=== PATIENT | female | born 1950 | race Caucasian/White ===

== ENCOUNTER 2024-02-06 22:58 | Inpatient (IN) | payer MEDICARE, BC, SELFPAY ==
[2024-02-06] VITALS (8 sets, daily range): BP systolic 96–149; BP diastolic 63–90; BMI 26.0; BMI 26.1
[2024-02-06 16:53] LABS: % Basophils 0.4 % (0-2); % Eosinophils 0.8 % (0-6); % Immature Granulocytes 0.8 % (0-0.5); % Monocytes 7.1 % (1.7-9.3); % Neutrophils 76.9 % (42.2-75.2); Absolute Basophils 0.1 10^3/uL (0-0.2); Absolute Eosinophils 0.1 10^3/uL (0-0.7); Absolute Immature Granulocytes 0.1 10^3/uL (0-0.05); Absolute Lymphocytes 1.9 10^3/uL (1.2-3.4); Absolute Neutrophils 10.5 10^3/uL (1.4-6.5); Hematocrit 35.4 % (37.0-47.0); Hemoglobin 12.1 g/dL (12.0-16.0); Mean Corp Hgb Conc. 34.2 g/dL (33.0-37.0); Mean Corpuscular Hgb 28.7 pg (27.0-31.0); Mean Corpuscular Volume 83.9 fL (81.0-99.0); Mean Platelet Volume 10.8 fL (7.4-10.4); Nucleated Red Blood Cells % 0 %; Platelet Count 301 10^3/uL (130-400); Red Blood Cell Count 4.22 10^6/uL (4.20-5.40); Red Cell Dist. Width 12.7 % (11.5-14.5); White Blood Cell Count 13.6 10^3/uL (4.8-10.8)
[2024-02-06 17:04] LABS: ALT (SGPT) 20 U/L (0-35); AST (SGOT) 25 U/L (14-36); Albumin 3.7 g/dl (3.5-5.0); Alkaline Phosphatase 68 U/L (38-126); Blood Urea Nitrogen 17 mg/dl (7-17); Calcium 9.5 mg/dl (8.4-10.2); Carbon Dioxide 29 mmol/L (22-30); Chloride 104 mmol/L (98-107); Glucose 109 mg/dl (70-99); Potassium 2.9 mmol/L (3.5-5.1); Sodium 140 mmol/L (135-145); Total Bilirubin 0.5 mg/dl (0.2-1.3); Total Protein 6.4 g/dl (6.3-8.2); eGFR > 60.00
--- NOTE | 2024-02-06 17:33 | ED.GENMED ---
History of Present Illness
General
Chief Complaint: Weakness
Source: patient and spouse
Exam Limitations: altered mental status
Time Seen by Provider: 02/06/24 17:12
Nursing documentation reviewed up to this point in time: agreed with
Travel History
Have you had any contact with someone who has COVID-19?: No
Do you have any symptoms of coronavirus? Fever > 100 degrees, chills, cough, shortness of breath, sore throat, loss of taste or smell, muscle aches, or headache?: No
History of Present Illness
History of Present Illness:
73 yo female w h/o HTN. breast CA 11/09 with lumpectomy and radiation completed 02/2023, smoker, here with at bedside. She states 'my speech...I miss my words.' states since 11:30 last p.m. she has been more forgetful, having trouble
getting correct words out, legs are weak, couldn't even walk up the stairs, these symptoms are much worse today. She is drifting off to sleep frequently, 'quite a bit more' today.
Appetite poor past week from upper abdominal pain that has improved over past 2 days, but still there. Saw PCP yesterday for the abd pain and had none of today's symptoms, walked across parking lot fine. Had out pt labs and US ordered but not done.
Pt denies headache, n/v, denies CP, trouble breathing.
Past History
Past History
ED Past Medical History: Cancer (breast) and HTN
ED Past Surgical History: Appendectomy, Gynecological (lumpectomy ) and Orthopedic
Social History
Tobacco: Smoker
Alcohol: None
Personal:
Living: with family
Review of Systems
Review of Systems
Allergies reviewed?: Yes
All Other Systems: ROS reviewed and negative except as documented in HPI and ROS
Constitutional: Reports fatigue; Denies fever
Respiratory: Denies trouble breathing
Cardiac: Denies chest pain
ABD/GI: Reports abdominal pain and anorexia; Denies nausea, vomiting, diarrhea, constipated, bloody stools or black stools
: Reports frequency (chronic); Denies dysuria, flank pain, difficulty voiding or urgency
Musculoskeletal: Reports no symptoms
Skin: Reports no symptoms
Neurological: Reports weakness (legs are so weak she cannot stand since last night ); Denies dizzy or headache
Phy Exam
Physical Exam
Physical Exam:
GENERAL: No acute distress. A&Ox3.
CONSTITUTIONAL: Afebrile. , EOMs intact.
EYES: PERRL, conjunctivae normal
Neck: Supple
ENMT: dry mucus membranes, Pharynx nl
RESPIRATORY: Regular respirations, nonlabored, lungs clear.
CARDIOVASCULAR: Regular rate and rhythm, no murmurs, no rubs.
GI: Soft, nontender, normal BS
MUSCULOSKELETAL: No edema. Moves with ease. Well perfused.
SKIN: Warm, dry, pink
PSYCH: Normal mood and affect. Well kept, interactive and appropriate
NEUROLOGIC: Awake, alert and oriented. Speech clear, mild expressive aphasia, Strength 4/4 throughout. Trouble with right finger to nose after first try. Not uncoordinated, just doesn't seem to understand the command.
NIH Stroke Score
Level of Consciousness: 0 - Alert
LOC questions: 1-Answers one correctly (states it is January)
LOC Commands: 0-Performs both correctly
Best Gaze: 0-Normal
Visual Holman: 0=Normal, no visual loss
Facial palsy: 0=Normal, symmetrical
Motor - Right Arm: 0=No drift 10 seconds
Motor - Left Arm: 0=No drift 10 seconds
Motor - Right Le-No drift 5 seconds
Motor - Left Le-No drift 5 seconds
Limb Ataxia: 1-Present in one limb (finger to nose right hand unable to repeat after first try)
Sensation: 0-Normal
Best Language: 1-Mild aphasia
Dysarthria: 0-Normal
Extinction and Inattention: 0-No abnormality
Total Score:: 3
Course
Orders/Labs/Results
Orders:
Orders
02/06/24 16:40
CMP [Comprehensive Metabolic Panel] Urgent
Complete Blood Count/With Diff Urgent
02/06/24 17:12
0.9% Sodium Chloride 1000 ml [Nss] 1,000 ml IV BOLUS
02/06/24 17:14
Electrocardiogram (*1) Urgent
Reason for Study: Chest Pain
EKG- Treatment ONCE
02/06/24 17:20
Urinalysis Reflex To Culture Urgent
Date Specimen was Collected: 02/06/24
Time Specimen was Collected: 17:17
Urine Microscopic Reflex Cult Urgent
02/06/24 17:31
Potassium Chloride [KCl] 20 meq 0.9% Sodium Chloride 150 ml [Nss] 150 ml IV NOW
02/06/24 17:32
CT Head W/o Iv Contrast Urgent
Comment:
Reason For Exam: change in mental state
02/06/24 18:05
NEUROLOGY CONSULT Urgent
Consulting Provider: Rosibel Montelongo
Was physician already notified: Yes
Reason for consult: Stroke like symptoms started 19 hours ago
02/06/24 18:46
Consult Neurology [NEUROLOGY CONSULT] Routine
Consulting Provider: Rosibel Montelongo
Was physician already notified: Yes
Reason for consult: apshasia word replacement
Aspirin Low Dose EC [Aspir Low (Enteric Coated)] 81 mg PO NOW STA
Atorvastatin [Lipitor] 40 mg PO NOW STA
02/06/24 18:49
Admit/Transfer Patient As Directed
Co-Sign Provider:
Level of Care: Inpatient admission
Assign to:: Telemetry
Physician / Group: darcie lucio
Diagnosis: aphasia concern for cva/tia, hypokalemia
Reason for Telemetry: CVA/TIA
Date to Stop Telemetry: 02/09/24
Time to Stop Telemetry: 11:00
Reason for Hospitalization: aphasia concern for cva/tia, hypokalemia
Expected length of stay greater than two midnights?: Yes
ELOS- Estimated Length of Stay in days: 3
I certify the patient meets the requirements for IP care: Yes
Code Status As Directed
Resuscitation Status: Full Code
02/06/24 19:03
Potassium Chloride [KCl] 40 meq PO NOW STA
02/06/24 19:20
COVID-19 Antigen Urgent
Source: Nasal Swab
Influenza A+B Rapid Molecular Urgent
BAKARI Source: Nasal Swab
Specimen Description:
02/06/24 22:59
Acetaminophen [Tylenol/Feverall] 650 mg RECTAL Q4HPRN PRN
Acetaminophen [Tylenol] 650 mg PO Q4HPRN PRN
Cyclobenzaprine HCl [Flexeril] 10 mg PO BIDPRN PRN
Docusate Sodium [Colace] 100 mg PO DAILYPRN PRN
hydrocodone-ibuprofen 1 tablet PO BIDPRN PRN
02/06/24 22:59
Case Management Consult ONCE
Case Management Consult: Discharge Planning
Comment: stroke/tia
DIETARY CONSULT Routine
Reason for Consult: stroke/TIA
Continuity Clerk Urgent
Glycohemoglobin (HgbA1c) Routine
Activity As Directed
Activity Level: As Tolerated
NIH Stroke Scale As Directed
Directions: Per protocol
Comment: every shift and with any change in condition or mental status
Neurological Checks As Directed
Frequency: q4h
Additional Instructions:: q4h x 24h upon admission to the floor, then qshift & with any change in condition
and mental status
Patient Education As Directed
Type: Stroke education packet
Comment: provide to patient and family
Pneumatic Compression Sleeves As Directed
Type: Knee high
Vital Signs As Directed
Frequency: Per unit guidelines
Ot Eval And Treat Routine
Pt Eval And Treat Routine
Activity Level: As Tolerated
DX Deep Vein Thrombosis Video Routine
02/06/24 23:00
Amitriptyline [Elavil] 150 mg PO HS
02/07/24 01:30
Pregabalin [Lyrica] 150 mg PO BID
02/07/24 06:21
Basic Metabolic Panel IN AM
Cardiovascular Evaluation IN AM
Complete Blood Count/With Diff IN AM
02/07/24 08:00
Aspirin Low Dose EC [Aspir Low (Enteric Coated)] 81 mg PO DAILY
Bupropion(24Hr)Extended Releas [WELLBUTRIN XL (24 hour extended release)] 300 mg PO DAILY
Cholecalciferol (Vitamin D3) [VITAMIN D3 (cholecalciferol)] 25 mcg PO DAILY
Losartan [Cozaar] 50 mg PO DAILY
Pantoprazole [Protonix] 40 mg PO DAILY
02/07/24 18:00
Atorvastatin [Lipitor] 40 mg PO QPM
02/09/24 11:00
DC Protocol for Telemetry ONCE
Abnormal Lab Results
02/06/24 02/06/24
16:40 17:20
WBC 13.6 H 10^3/uL
(4.8-10.8)
Hct 35.4 L %
(37.0-47.0)
MPV 10.8 H fL
(7.4-10.4)
Abs Immat Gran (auto) 0.1 H 10^3/uL
(0-0.05)
Absolute Neuts (auto) 10.5 H 10^3/uL
(1.4-6.5)
Absolute Monos (auto) 1.0 H 10^3/uL
(0.1-0.6)
Immature Gran % 0.8 H %
(0-0.5)
Neutrophils % 76.9 H %
(42.2-75.2)
Lymphocytes % 14.0 L %
(20.5-51.1)
Potassium 2.9 L mmol/L
(3.5-5.1)
Glucose 109 H mg/dl
(70-99)
Leukocyte Esterase Rfl Trace A
(Negative)
Urine Bacteria (Reflex) Few A
(Negative)
02/06/24 16:40
02/06/24 16:40
Vital Signs
Initial and Last Documented VS:
Initial Vital Signs
Temp Pulse Resp BP Pulse Ox
98.1 F 76 18 116/72 92
02/06/24 16:27 02/06/24 16:27 02/06/24 16:27 02/06/24 16:27 02/06/24 16:27
Last Documented Vital Signs
Temp Pulse Resp BP Pulse Ox
98.2 F 75 20 144/80 95
02/08/24 22:34 02/08/24 22:34 02/08/24 22:34 02/08/24 22:34 02/08/24 22:34
MDM/Problems Addressed
Differential Diagnosis Includes:
CVA, TIA, metastatic disease, dehydration, UTI
MDM/Problems Addressed:
73 yo female w h/o HTN. breast CA with lumpectomy and radiation 2022, smoker, here with at bedside. She states 'my speech...I miss my words.' states since 11:30 last p.m. she has been more forgetful, having trouble getting correct
words out, legs are weak, couldn't even walk up the stairs, these symptoms are much worse today. She is drifting off to sleep frequently, 'quite a bit more' today.
Appetite poor past week from upper abdominal pain that has improved over past 2 days, but still there. Saw PCP yesterday for the abd pain and had none of today's symptoms, walked across parking lot fine. Had out pt labs and US ordered but not done.
Pt denies headache, n/v, denies CP, trouble breathing.
02/06/2024 1754 PM
CBC: WBC 13.6
CMP: K+ 2.9, no other abnormality
U/A pending
Head CT: pending
Hospitalist and Neurology notified of admission
Chronic conditions affecting care: HTN and Cancer (breast)
*Critical Care Note
Total Time (30-74mins, 75-104mins- exclusive of procedures): Not Applicable
Patient Management
Social determinants of health affecting care: Strong social support
ED Attending Note
-
Portions of this chart may have been created with voice recognition software.� Occasional wrong word or��sound alike� substitutions may have occurred due to the inherent limitations of voice recognition software.
Discharge Plan
Departure
Patient Disposition: Admit
Date of Disposition: 02/06/24
Time of Disposition: 18:05
Presentation/result/management discussed w/ accepting MD/DO: Hospitalist
Condition: Fair
Discharge Problem:
Stroke-like symptoms
Interventions
Interventions:
*Risk Screen - Suicide Last Done: 02/06/24 16:27
*General Assessment Last Done: 02/06/24 16:27
*Neglect/Abuse Screening Last Done: 02/06/24 16:27
ED- Fall Risk Assessment Last Done: 02/06/24 17:06
*ED COVID-19 Vaccine History Last Done: 02/06/24 16:27
*Nursing Disposition Last Done: 02/06/24 22:58
ED- Cardiac Assessment Last Done: 02/06/24 17:06
ED- Neurological Assessment Last Done: 02/06/24 17:06
ED- Pulmonary Assessment Last Done: 02/06/24 17:06
Discharge Date and Time
Discharge Date/Time: 02/06/24 22:59
[2024-02-06] MEDS: KCL 160 MEQ IV (18:02)
[2024-02-06] MEDS: NSS 1000 IV (18:02)
--- NOTE | 2024-02-06 18:19 | W.PN.UPDATE ---
Update Note
Progress Note Update
I saw and examined the patient.
The DRAFTER AUTOMOTIVE DESIGN LAYOUT or PA's note was reviewed and I agree with the note.
Comment:
Patient 73 years old female history of breast cancer, hypertension, depression, presented to the hospital with aphasia. Patient was seen well last yesterday but since 11:30 PM last evening she has been having lower extremity generalized weakness
associated with expressive aphasia and it has continued to get worse today throughout the day. She also had periods of confusion on off and probable aphasia for over 1 week intermittent in nature. She had a CT scan of the head in the ER that is
pending radiology report. She was referred to hospitalist for evaluation.
Physical exam:
General: Acutely ill
HEENT: Normocephalic, Atraumatic and Moist Mucous Membranes
Respiratory: Clear to Auscultation; Negative Wheezes, Rales or Rhonchi
Cardiac: Regular Rhythm and S1/S2
GI: Soft, Nontender and Nondistended
Musculoskeletal: No Clubbing, No Cyanosis and No Edema
Neuro: Awake, Alert and Oriented, aphasia present
Psych: Calm
A/P:
r/o CVA--> aspirin, statins, keep euglycemia and normothermia, permissive hypertension, plan for MRI of the brain without gadolinium, either carotid ultrasound or MRA head and neck, possible echocardiogram. Follow-up NIH score. Neurology consult.
Will give further recommendations based on clinical course.
--- NOTE | 2024-02-06 18:21 | HPS.HSE ---
Addendum entered and electronically signed by Claudy Jones MD 02/07/24 07:51:
I saw and examined the patient on 01/19/2024.
The CIS COORDINATOR or PA's note was reviewed and I agree with the note.
Comment:
Patient 73 years old female history of breast cancer, hypertension, depression, presented to the hospital with aphasia.� Patient was seen well last yesterday but since 11:30 PM last evening she has been having lower extremity generalized weakness
associated with expressive aphasia and it has continued to get worse today throughout the day.� She also had periods of confusion on off and probable aphasia for over 1 week intermittent in nature. She had a CT scan of the head in the ER that is
pending radiology report.� She was referred to hospitalist for evaluation.
Physical exam:
General: Acutely ill
HEENT: Normocephalic, Atraumatic and Moist Mucous Membranes
Respiratory: Clear to Auscultation; Negative Wheezes, Rales or Rhonchi
Cardiac: Regular Rhythm and S1/S2
GI: Soft, Nontender and Nondistended
Musculoskeletal: No Clubbing, No Cyanosis and No Edema
Neuro: Awake, Alert and Oriented, aphasia present
Psych: Calm
A/P:
r/o CVA--> aspirin, statins, keep euglycemia and normothermia, permissive hypertension, plan for MRI of the brain without gadolinium, either carotid ultrasound or MRA head and neck, possible echocardiogram.� Follow-up NIH score.� Neurology consult.�
Will give further recommendations based on clinical course.
Original Note:
Family Physician
-
Family Physician: Barney العلي
Chief Complaint
-
Expressive aphasia, word replacement, weakness with standing
History of Present Illness
73-year-old female who started becoming more forgetful last night having trouble getting her words out with weakness and inability to walk up the steps per her . The patient is aware that she believes she is missing words when she is
talking. She reports she had abdominal pain 3 days ago with decreased appetite saw her PCP and had prescription for outpatient labs and ultrasound but it was not completed yet. She denies fever, chills, chest pain, palpitations, current abdominal
pain, nausea, vomiting, diarrhea, urinary symptoms. She has past medical history of breast cancer Dx 11/07/2022 with lumpectomy and radiation completed February 2023, HTN, migraines, GERD, HLD, back spasms.
Medical History
Past Medical History
Past Medical History: Reports Other
Additional Past Medical History:
breast cancer Dx 11/07/2022 with lumpectomy and radiation completed February 2023
HTN
migraines
GERD
HLD
back spasms
Past Surgical History: Reports Other
Additional Past Surgical History:
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
Appendectomy
Knee replacement right
Social History
Tobacco: Smoker (1 pack a day x 57 years)
Alcohol: Occasional (A few times a year)
Drug: None
Personal:
Living: With Family ( [place])
Employment: Retired
Family History
Family History: Other (Mother unknown type of cancer, father lung cancer, sister with skin cancer)
Allergies / Home Medications
Allergies reflects when Allergies were last updated in [employer].
Home Medications with original date entered in [employer]
Allergy/Medication List:
Allergies
Allergy/AdvReac Type Severity Reaction Status Date / Time
amoxicillin [From Augmentin] Allergy Rash Verified 02/06/24 16:27
clavulanic acid Allergy Rash Verified 02/06/24 16:27
[From Augmentin]
indomethacin [From Indocin] Allergy Rash Verified 02/06/24 16:27
tolmetin [From Tolectin] Allergy Rash Verified 02/06/24 16:34
varenicline [From Chantix] Allergy Nausea / Verified 02/06/24 16:34
Vomiting
Home Medications
amitriptyline 150 mg tablet 150 mg PO HS 02/06/24
aspirin 325 mg tablet 325 mg PO BIDPRN PRN backs pain 02/06/24
bupropion HCl 300 mg 24 hr tablet, extended release (Wellbutrin XL) 300 mg PO DAILY 02/06/24
frgxrvjnuj-avvvrqu-byqfbfae 50 mg-325 mg-40 mg capsule 1 cap PO BIDPRN PRN migraines 02/06/24
cholecalciferol (vitamin D3) 25 mcg (1,000 unit) tablet (Vitamin D3) 25 mcg PO DAILY 02/06/24
conjugated estrogens 0.625 mg tablet (Premarin) 0.625 mg PO DAILY 02/06/24
cyclobenzaprine 10 mg tablet 10 mg PO BIDPRN PRN spasms 02/06/24
docusate sodium 100 mg capsule (Colace) 100 mg PO DAILYPRN PRN constipation 02/06/24
fenofibrate nanocrystallized 145 mg tablet (Tricor) 145 mg PO DAILY 02/06/24
glucosamine sulfate dipotassium Cl 500 mg-chondroitin 400 mg capsule (Glucosamine Sulfate 2 KCL-Chondroitin) 1 cap PO DAILY 02/06/24
hydrocodone 7.5 mg-ibuprofen 200 mg tablet 1 tab PO BIDPRN PRN migraines 02/06/24
losartan 50 mg tablet 50 mg PO DAILY 02/06/24
omeprazole 20 mg tablet,delayed release 20 mg PO DAILY 02/06/24
pregabalin 150 mg capsule (Lyrica) 150 mg PO TID 02/06/24
Review of Systems
-
History Source: Patient and Family ( [place])
A 12 point ROS was completed and negative except as noted: Yes
Constitutional: Reports Fatigue; Denies Fever
EENT: Reports Other (Expressive aphasia with word replacement); Denies Sore Throat
Respiratory: Reports Cough (Chronic); Denies Trouble Breathing
Cardiac: Denies Chest Pain, Diaphoresis, Palpitations or Syncope
Abdomen/GI: Reports Abdominal Pain (2 to 3 days resolved); Denies Nausea, Vomiting, Diarrhea, Constipated, Bloody Stools or Black Stools
: Denies Dysuria, Frequency, Flank Pain, Incontinence, Difficulty Voiding or Urgency
Musculoskeletal: Denies Joint Pain or Edema
Skin: Denies Itching or Rash
Neurological: Denies Dizzy, Headache or Weakness
Endocrine: Reports No Symptoms
Hematologic/Lymphatic: Reports No Symptoms
Psych: Reports Calm
Physical Exam
Vital Signs
Vital Signs
Temp Pulse Resp BP Pulse Ox
98.1 F 74 24 128/63 95
02/06/24 16:27 02/06/24 17:31 02/06/24 17:31 02/06/24 17:31 02/06/24 17:10
Physical Exam
General: Comfortable, Conversant and Other (Expressive aphasia with word replacement); No Fever or Chills
HEENT: NormoCephalic, Anicteric, Moist mucous membranes, PERRLA, [place] Conjunctivae and No Ptosis
Respiratory: Clear; No Wheezes, Rales or Rhonchi
Cardiac: S1/S2 and Regular Rhythm; No Murmur, Rub, Gallop or Peripheral Edema
Breast: Deferred by me
GI: Soft, Non Tender, Non Distended, Normal Bowel Sounds and No Hepatosplenomegaly
Rectal: Deferred by Provider
Genito-urinary: Deferred by me
Musculoskeletal: Clubbing (To fingernails), No Cyanosis and No Edema
Skin: Warm and Dry; No Rash
Neuro: AO x 3 (With expressive aphasia and word replacement), Nonfocal/grossly intact, Cranial Nerves Intact and No Sensory Deficits; No Slurred Speech, Facial Droop or Tremors
Psych: Calm
Laboratory Results
-
02/06/24 16:40
02/06/24 16:40
Laboratory Results
Total Bilirubin 0.5 mg/dl (0.2-1.3) 02/06/24 16:40
AST 25 U/L (14-36) 02/06/24 16:40
ALT 20 U/L (0-35) 02/06/24 16:40
Alkaline Phosphatase 68 U/L (38-126) 02/06/24 16:40
Impression/Plan
-
Impression/plan:
Observation telemetry
#Aphasia concern for CVA/TIA
Neurochecks every 4 hours
Check lipid profile, HgbA1c
-MRI brain
-Carotid ultrasound
-Aspirin 81 mg and 81 mg daily
-Start Lipitor 40 mg every afternoon
-Consult neurology
-PT/OT/case management consult
#Hypokalemia
K2.9, KCl 40 mEq now, rider 40 mEq
EKG: NSR 74 bpm, QTc 459 MS no previous EKGs
#Breast cancer DCIS
Dx 11/07/2022 with lumpectomy and radiation completed February 2023
Follows with [facility]
#Active smoker
1 pack a day x 57 years
-Nicotine patch 21 Mg
-Cessation advised
#HTN�benign
128/63
-Continue losartan
#GERD
Continue omeprazole
#Hx migraines
Takes butalbital/aspirin/caffeine as needed
#Spinal stenosis/peripheral neuropathy
-Continue Lyrica 150 mg p.o. 3 times daily, Flexeril twice daily as needed spasms
#Insomnia
-Continue amitriptyline 150 mg at bedtime
Renal calculi Hx
DVT prophylaxis
SCDs
Full code
[2024-02-06] MEDS: LIPITOR 40 MG PO (19:03)
[2024-02-06] MEDS: ASPIR LOW (ENTERIC COATED) 81 MG PO (19:03)
[2024-02-06] MEDS: KCL 40 MEQ PO (19:21)
[2024-02-06 19:38] LABS: Urine Albumin Negative (Neg - Trace); Urine Bilirubin Negative (Negative); Urine Character Clear (Clear); Urine Color Yellow; Urine Glucose Negative (Negative); Urine Ketone Negative (Negative); Urine Leukocyte Trace (Negative); Urine Nitrite Negative (Negative); Urine Occult Blood Negative (Negative); Urine Urobilinogen Negative (Neg - 1+)
[2024-02-06 19:45] LABS: Urine Bacteria Few (Negative); Urine Red Blood Cell 0-2 /HPF (0-2)
[2024-02-06 19:50] LABS: COVID-19 Antigen Negative (Negative)
[2024-02-07] VITALS (8 sets, daily range): BP systolic 135–165; BP diastolic 76–86; PULSE 82
[2024-02-07] MEDS: ELAVIL 150 MG PO ×2 (00:59→20:40)
[2024-02-07] MEDS: FLEXERIL 10 MG PO (01:22)
[2024-02-07] MEDS: LYRICA 150 MG PO ×3 (01:22→20:40)
[2024-02-07 06:42] LABS: % Basophils 0.3 % (0-2); % Eosinophils 0.8 % (0-6); % Immature Granulocytes 0.8 % (0-0.5); % Lymphocytes 14.7 % (20.5-51.1); % Monocytes 7.4 % (1.7-9.3); Absolute Eosinophils 0.1 10^3/uL (0-0.7); Absolute Immature Granulocytes 0.1 10^3/uL (0-0.05); Absolute Lymphocytes 1.8 10^3/uL (1.2-3.4); Absolute Monocytes 0.9 10^3/uL (0.1-0.6); Absolute Neutrophils 9.5 10^3/uL (1.4-6.5); Hematocrit 34.8 % (37.0-47.0); Hemoglobin 11.5 g/dL (12.0-16.0); Mean Corpuscular Hgb 28.3 pg (27.0-31.0); Mean Corpuscular Volume 85.5 fL (81.0-99.0); Mean Platelet Volume 10.9 fL (7.4-10.4); Nucleated Red Blood Cells % 0 %; Platelet Count 293 10^3/uL (130-400); Red Blood Cell Count 4.07 10^6/uL (4.20-5.40); Red Cell Dist. Width 12.7 % (11.5-14.5); White Blood Cell Count 12.5 10^3/uL (4.8-10.8)
[2024-02-07 07:26] LABS: Blood Urea Nitrogen 13 mg/dl (7-17); Calcium 9.3 mg/dl (8.4-10.2); Carbon Dioxide 23 mmol/L (22-30); Chloride 112 mmol/L (98-107); Estimated Creatinine Clearance 46 ml/min; Glucose 118 mg/dl (70-99); HDL Cholesterol 49 mg/dl; LDL Cholesterol, Calculated 46 mg/dl; Potassium 3.5 mmol/L (3.5-5.1); Sodium 140 mmol/L (135-145); Total Cholesterol 122 mg/dl (50-199); Triglyceride 139 mg/dl (10-149); Very Low Density Lipoprotein 27 mg/dl (0-30); eGFR > 60.00
--- NOTE | 2024-02-07 07:49 | W.PN.HOSP.TC ---
Today's Communication/Plan
-
Continue current management. MRI of the brain. Neurology consult. School Physical Therapist consult. Case management for discharge disposition.
Assessment / Plan
Assessment / Plan
Physical exam:
General: Acutely ill
HEENT: Normocephalic, Atraumatic and Moist Mucous Membranes
Respiratory: Clear to Auscultation; Negative Wheezes, Rales or Rhonchi
Cardiac: Regular Rhythm and S1/S2
GI: Soft, Nontender and Nondistended
Musculoskeletal: No Clubbing, No Cyanosis and No Edema
Neuro: Awake, Alert and Oriented, able to speak fluently today.
Psych: Calm
A/P:
# Ambulatory dysfunction possible aphasia prior to presentation, unclear etiology
Discussed with neurology today on 02/06 and she will evaluate the patient and get back to us.
PT and OT recommended acute rehab so belt loop maker consulted
agricultural labor camp manager for discharge disposition
Neurochecks every 4 hours
Check lipid profile--> LDL 46
-MRI brain
-Carotid ultrasound
-Aspirin 81 mg and 81 mg daily
-Start Lipitor 40 mg every afternoon
-Consult neurology
-PT/OT/case management consult
#Hypokalemia
K improved to 3.5 today
Prior:
K2.9, KCl 40 mEq now, rider 40 mEq
EKG:�NSR 74 bpm, QTc 459 MS no previous EKGs
#Breast cancer DCIS
Dx 11/07/2022 with lumpectomy and radiation completed February 2023
Follows with [facility]
#Active smoker
1 pack a day x 57 years
-Nicotine patch 21 Mg
-Cessation advised
#HTN�benign
128/63
-Continue losartan
#GERD
Continue omeprazole
#Hx migraines
Takes butalbital/aspirin/caffeine as needed
#Spinal stenosis/peripheral neuropathy
-Continue Lyrica 150 mg p.o. 3 times daily, Flexeril twice daily as needed spasms
#Insomnia
-Continue amitriptyline 150 mg at bedtime
Renal calculi Hx
DVT prophylaxis
SCDs
Full code
Anticipated Discharge: 24 - 48 hours
Subjective/Interval History
-
Date of Service: February 07, 2024
Patient feels better overall. Still having some ambulatory dysfunction and she had a fall but did not hit her head.
Objective Data
-
Labs:
Laboratory Results
02/07/24
06:21
WBC 12.5 H
Hgb 11.5 L
Hct 34.8 L
Plt Count 293
Sodium 140
Potassium 3.5
Chloride 112 H
Carbon Dioxide 23
BUN 13
Creatinine 0.9
Glucose 118 H
Calcium 9.3
Vital Signs:
Vital Signs
Temp Pulse Resp BP Pulse Ox
98.0 F 99 19 155/80 98
02/07/24 07:09 02/07/24 07:09 02/07/24 07:09 02/07/24 07:09 02/06/24 23:00
Review of Systems
-
All other systems: Reviewed and negative
[2024-02-07] MEDS: PROTONIX 40 MG PO (08:12)
[2024-02-07] MEDS: WELLBUTRIN XL (24 hour extended release) 300 MG PO (08:12)
[2024-02-07] MEDS: COZAAR 50 MG PO (08:12)
[2024-02-07] MEDS: VITAMIN D3 (cholecalciferol) 25 MCG PO (08:12)
[2024-02-07] MEDS: ASPIR LOW (ENTERIC COATED) 81 MG PO (08:12)
[2024-02-07 08:42] LABS: Glycohemoglobin (HgbA1c) 6.4 % (4.0-5.6)
--- NOTE | 2024-02-07 11:25 | CON.NEURO ---
Consultation
Order
Date of Consultation: 02/07/24
Reason for Consult: stroke
CC: none
HPI: This is a 73-year-old woman who presented to [facility] on February 06, 2024 with language dysfunction.
more forgetful, having trouble getting correct words out, legs are weak, couldn't even walk up the stairs
ER VS: 116/72-96/72, 76, afebrile.
EKG: NSR, QTc-459.
PDMP:Hydrocodone-Ibuprofen 7.5-200 150 tabs filled in on 01/17/2024, 09/20/2023; Noqnxgpotc-Iqhsvaz-Sovvuxfg Cp 30 tabs filled in on 01/24/2024, 12/31/2023, 11/14/2023; Pregabalin 150 Mg 90 capsules filled in on 01/04/2024, 12/04/2023, 10/31/2023.
Labs: WBCs�13.6, normal sodium, creatinine, glucose�109, hemoglobin A1c�6.4, LDL�46, urinalysis�positive for leukocyte esterase few bacteria, negative COVID.
CT head(02/06/2024)-Mild diffuse cerebral and cerebellar volume loss. 6 mm chronic lacunar infarct in the right putamen. Small chronic white matter infarcts and mild white matter leukoaraiosis in the frontal lobes and left external capsule.
PMH: left breast CA(s/p RT), HTN, MDD,
PSH: L lumpectomy, appendectomy
SH: , retired OR nurse, active smoker, denies excessive alcohol use
FH: Not contributory to current presentation
All: Augmentin, indomethacin, Augmentin, Chantix
ROS:Constitutional: Negative. Negative for chills, fever and unexpected weight change.
HENT: Negative for ear pain, hearing loss, tinnitus and trouble swallowing.
Eyes: Negative. Negative for photophobia, pain and visual disturbance.
Respiratory: Negative for cough, choking and shortness of breath.
Cardiovascular: Negative for chest pain, palpitations and leg swelling.
Gastrointestinal: Negative for abdominal pain and vomiting.
Endocrine: Negative. Negative for cold intolerance.
Genitourinary: Negative for dysuria, flank pain and urgency.
Musculoskeletal: Negative for back pain, gait problem, neck pain and neck stiffness.
Skin: Negative for rash.
Allergic/Immunologic: Negative. Negative for immunocompromised state.
Neurological: Positive for imbalance
Psychiatric/Behavioral: Positive for confusion
General: Well developed. In no acute distress.
Cardio: Regular rate and rhythm without murmur. Extremities are without cyanosis or edema.
Neuro:
Mental Status: Alert, oriented to person, place, and date. Impaired attention and recall. Follows complex requests across the midline. Comprehension, naming, and repetition intact.
Cranial Nerves: . Pupils are equally round and reactive to light. EOMs full. Visual hernandez full to confrontation. No ptosis. No nystagmus. V1-V3 intact to light touch and pinprick bilaterally, symmetric. Face symmetric. Normal hearing AU.
The palate elevated well. SCMs and traps 5/5, Tongue midline. No dysarthria.
Motor: Normal bulk and tone. No pronator or arm drift. Strength 5/5 throughout, except for proximal leg weakness 4/5. No clonus.
Reflexes: + BL grasp
Sensory: Normal LT
Coordination: No dysmetria or tremor.
Gait: Wide stance, R foot is externally rotated
Assessment and Plan:
I. Multifactorial encephalopathy (vascular, toxic, neurodegenerative?)
II. Ambulatory dysfunction
III. Chronic right putamenal infarct
-Fall precaution
-please check TSH, free T4, vit B12, CK, ua, ua tox.
-Brain MRI wo conrad if no clinical improvement;
-Continue aspirin
-Will contact patient's family to obtain cognitive and functional baseline
I personally reviewed all radiology and labs along with past medical records pertinent to current medical problems. Total time spent in patient care is 60 minutes.
Thank you for allowing us to participate in the care of this patient. We will continue to follow. Please do not hesitate to contact us with any questions or concerns.
Subjective/Objective
Subjective Data
Date of Service: February 07, 2024
Objective Data
Vital Signs
Temp Pulse Resp BP Pulse Ox
36.8 C 85 18 165/76 93
02/07/24 08:21 02/07/24 08:21 02/07/24 08:21 02/07/24 08:21 02/07/24 08:21
Lab Results
02/07/24 06:21
02/07/24 06:21
Sodium 140 mmol/L (135-145) 02/07/24 06:21
Potassium 3.5 mmol/L (3.5-5.1) 02/07/24 06:21
BUN 13 mg/dl (7-17) 02/07/24 06:21
Glucose 118 mg/dl (70-99) H 02/07/24 06:21
Calcium 9.3 mg/dl (8.4-10.2) 02/07/24 06:21
LDL Cholesterol, Calc 46 mg/dl 02/07/24 06:21
Patient Allergies
amoxicillin [From Augmentin] Allergy (Verified 02/06/24 16:27)
Rash
clavulanic acid [From Augmentin] Allergy (Verified 02/06/24 16:27)
Rash
indomethacin [From Indocin] Allergy (Verified 02/06/24 16:27)
Rash
tolmetin [From Tolectin] Allergy (Verified 02/06/24 16:34)
Rash
varenicline [From Chantix] Allergy (Verified 02/06/24 16:34)
Nausea / Vomiting
Medications
-
Active Medications
Generic Name Dose Route Start Last Admin
Trade Name Freq PRN Reason Stop Dose Admin
Acetaminophen 650 mg 02/06/24 22:59
Acetaminophen 650 Mg Rectal Suppository RECTAL 03/05/24 22:58
Q4HPRN PRN
DENNY, mild pain, or temp >100.4F
Acetaminophen 650 mg 02/06/24 22:59
Acetaminophen 325 Mg Tablet PO 03/05/24 22:58
Q4HPRN PRN
DENNY, mild pain, or temp >100.4F
Amitriptyline HCl 150 mg 02/06/24 23:00 02/07/24 00:59
Amitriptyline 75 Mg Tablet PO 03/05/24 22:59 150 mg
HS LUIS Administration
Aspirin 81 mg 02/07/24 08:00 02/07/24 08:12
Aspirin 81 Mg (Enteric Coated) Tablet PO 03/06/24 07:59 81 mg
DAILY LUIS Administration
Atorvastatin Calcium 40 mg 02/07/24 18:00
Atorvastatin (Lipitor) 40 Mg Tablet PO 03/06/24 17:59
QPM LUIS
Bupropion HCl 300 mg 02/07/24 08:00 02/07/24 08:12
Bupropion (24hr) Extended Release 300 Mg Tablet PO 03/06/24 07:59 300 mg
DAILY LUIS Administration
Cholecalciferol 25 mcg 02/07/24 08:00 02/07/24 08:12
Cholecalciferol (Vitamin D3) 25 Mcg Tablet (1,000 Units) PO 03/06/24 07:59 25 mcg
DAILY LUIS Administration
Cyclobenzaprine HCl 10 mg 02/06/24 22:59 02/07/24 01:22
Cyclobenzaprine 10 Mg Tablet PO 03/05/24 22:58 10 mg
BIDPRN PRN Administration
spasms
Docusate Sodium 100 mg 02/06/24 22:59
Docusate Sodium 100 Mg Capsule PO 03/05/24 22:58
DAILYPRN PRN
constipation
Losartan Potassium 50 mg 02/07/24 08:00 02/07/24 08:12
Losartan 50 Mg Tablet PO 03/06/24 07:59 50 mg
DAILY LUIS Administration
Pantoprazole Sodium 40 mg 02/07/24 08:00 02/07/24 08:12
Pantoprazole 40 Mg Delayed Release Tablet PO 03/06/24 07:59 40 mg
DAILY LUIS Administration
Pregabalin 150 mg 02/07/24 01:30 02/07/24 08:12
Pregabalin 75 Mg Capsule PO 03/06/24 01:29 150 mg
BID LUIS Administration
Sodium Chloride 0 flush 02/06/24 23:00
Sodium Chloride 0.9% (Flush) Syringe IV 03/05/24 22:59
PER PROTOCOL LUIS
Home Medications
Medication Instructions Recorded
amitriptyline 150 mg tablet 150 mg PO HS 02/06/24
aspirin 325 mg tablet 325 mg PO BIDPRN PRN backs pain 02/06/24
bupropion HCl 300 mg 24 hr tablet, 300 mg PO DAILY 02/06/24
extended release (Wellbutrin XL)
vxiikpuilx-xexseap-hkobkstl 50 1 cap PO BIDPRN PRN migraines 02/06/24
mg-325 mg-40 mg capsule
cholecalciferol (vitamin D3) 25 25 mcg PO DAILY 02/06/24
mcg (1,000 unit) tablet (Vitamin
D3)
conjugated estrogens 0.625 mg 0.625 mg PO DAILY 02/06/24
tablet (Premarin)
cyclobenzaprine 10 mg tablet 10 mg PO BIDPRN PRN spasms 02/06/24
docusate sodium 100 mg capsule 100 mg PO DAILYPRN PRN constipation 02/06/24
(Colace)
fenofibrate nanocrystallized 145 145 mg PO DAILY 02/06/24
mg tablet (Tricor)
glucosamine sulfate dipotassium Cl 1 cap PO DAILY 02/06/24
500 mg-chondroitin 400 mg capsule
(Glucosamine Sulfate 2
KCL-Chondroitin)
hydrocodone 7.5 mg-ibuprofen 200 1 tab PO BIDPRN PRN migraines 02/06/24
mg tablet
losartan 50 mg tablet 50 mg PO DAILY 02/06/24
omeprazole 20 mg tablet,delayed 20 mg PO DAILY 02/06/24
release
pregabalin 150 mg capsule (Lyrica) 150 mg PO TID 02/06/24
Vital Signs and Labs
-
Vital Signs and Labs:
Vital Signs
Temp Pulse Resp BP Pulse Ox
37.2 C 85 18 149/86 91
02/07/24 15:00 02/07/24 15:00 02/07/24 15:00 02/07/24 15:00 02/07/24 15:00
Lab Results
02/07/24 06:21
02/07/24 06:21
Sodium 140 mmol/L (135-145) 02/07/24 06:21
Potassium 3.5 mmol/L (3.5-5.1) 02/07/24 06:21
BUN 13 mg/dl (7-17) 02/07/24 06:21
Glucose 118 mg/dl (70-99) H 02/07/24 06:21
Calcium 9.3 mg/dl (8.4-10.2) 02/07/24 06:21
LDL Cholesterol, Calc 46 mg/dl 02/07/24 06:21
Vitamin B12 Cancelled 02/07/24 11:37
Ur Buprenorphine Negative (Negative) 02/07/24 15:42
Home Medications
-
Home Medications
amitriptyline 150 mg tablet 150 mg PO HS 02/06/24
aspirin 325 mg tablet 325 mg PO BIDPRN PRN backs pain 02/06/24
bupropion HCl 300 mg 24 hr tablet, extended release (Wellbutrin XL) 300 mg PO DAILY 02/06/24
uybkzuzfgv-aqumlyi-hsfexkmm 50 mg-325 mg-40 mg capsule 1 cap PO BIDPRN PRN migraines 02/06/24
cholecalciferol (vitamin D3) 25 mcg (1,000 unit) tablet (Vitamin D3) 25 mcg PO DAILY 02/06/24
conjugated estrogens 0.625 mg tablet (Premarin) 0.625 mg PO DAILY 02/06/24
cyclobenzaprine 10 mg tablet 10 mg PO BIDPRN PRN spasms 02/06/24
docusate sodium 100 mg capsule (Colace) 100 mg PO DAILYPRN PRN constipation 02/06/24
fenofibrate nanocrystallized 145 mg tablet (Tricor) 145 mg PO DAILY 02/06/24
glucosamine sulfate dipotassium Cl 500 mg-chondroitin 400 mg capsule (Glucosamine Sulfate 2 KCL-Chondroitin) 1 cap PO DAILY 02/06/24
hydrocodone 7.5 mg-ibuprofen 200 mg tablet 1 tab PO BIDPRN PRN migraines 02/06/24
losartan 50 mg tablet 50 mg PO DAILY 02/06/24
omeprazole 20 mg tablet,delayed release 20 mg PO DAILY 02/06/24
pregabalin 150 mg capsule (Lyrica) 150 mg PO TID 02/06/24
Medications
-
Medications:
Generic Name Dose Route Start Last Admin
Trade Name Freq PRN Reason Stop Dose Admin
Acetaminophen 650 mg 02/06/24 22:59
Acetaminophen 650 Mg Rectal Suppository RECTAL 03/05/24 22:58
Q4HPRN PRN
DENNY, mild pain, or temp >100.4F
Acetaminophen 650 mg 02/06/24 22:59
Acetaminophen 325 Mg Tablet PO 03/05/24 22:58
Q4HPRN PRN
DENNY, mild pain, or temp >100.4F
Amitriptyline HCl 150 mg 02/06/24 23:00 02/07/24 00:59
Amitriptyline 75 Mg Tablet PO 03/05/24 22:59 150 mg
HS LUIS Administration
Aspirin 81 mg 02/07/24 08:00 02/07/24 08:12
Aspirin 81 Mg (Enteric Coated) Tablet PO 03/06/24 07:59 81 mg
DAILY LUIS Administration
Atorvastatin Calcium 40 mg 02/07/24 18:00 02/07/24 17:28
Atorvastatin (Lipitor) 40 Mg Tablet PO 03/06/24 17:59 40 mg
QPM LUIS Administration
Bupropion HCl 300 mg 02/07/24 08:00 02/07/24 08:12
Bupropion (24hr) Extended Release 300 Mg Tablet PO 03/06/24 07:59 300 mg
DAILY LUIS Administration
Cholecalciferol 25 mcg 02/07/24 08:00 02/07/24 08:12
Cholecalciferol (Vitamin D3) 25 Mcg Tablet (1,000 Units) PO 03/06/24 07:59 25 mcg
DAILY LUIS Administration
Cyclobenzaprine HCl 10 mg 02/06/24 22:59 02/07/24 01:22
Cyclobenzaprine 10 Mg Tablet PO 03/05/24 22:58 10 mg
BIDPRN PRN Administration
spasms
Docusate Sodium 100 mg 02/06/24 22:59
Docusate Sodium 100 Mg Capsule PO 03/05/24 22:58
DAILYPRN PRN
constipation
Losartan Potassium 50 mg 02/07/24 08:00 02/07/24 08:12
Losartan 50 Mg Tablet PO 03/06/24 07:59 50 mg
DAILY LUIS Administration
Pantoprazole Sodium 40 mg 02/07/24 08:00 02/07/24 08:12
Pantoprazole 40 Mg Delayed Release Tablet PO 03/06/24 07:59 40 mg
DAILY LUIS Administration
Pregabalin 150 mg 02/07/24 01:30 02/07/24 08:12
Pregabalin 75 Mg Capsule PO 03/06/24 01:29 150 mg
BID LUIS Administration
Sodium Chloride 0 flush 02/06/24 23:00
Sodium Chloride 0.9% (Flush) Syringe IV 03/05/24 22:59
PER PROTOCOL LUIS
[2024-02-07 12:11] LABS: Creatine Phosphokinase 82 U/L (30-135)
[2024-02-07 13:50] LABS: TSH Reflex To Free T4 2.01 uIU/ml (0.47-4.68)
[2024-02-07 14:09] LABS: Vitamin B12 828 pg/ml (239-931)
[2024-02-07 16:14] LABS: Amphetamines Negative (Negative); Barbiturates Negative (Negative); Benzodiazepines Negative (Negative); Buprenorphine Negative (Negative); Cocaine Negative (Negative); Marijuana Negative (Negative); Methadone Negative (Negative); Methamphetamines Negative (Negative); Opiates Negative (Negative); Phencyclidine Negative (Negative); Tricyclic Antidepressants Positive (Negative)
--- NOTE | 2024-02-07 16:28 | CM ---
Reviewed chart, met with patient to obtain information for assessment. Patient stated that she lives in a one story home with two steps with her spouse and son. She described herself as independent with her ADLs, dressing, bathing and personal care
but she did admit to some difficulty with dressing especially with lower extremities. Patient ambulates independently.
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 She was driving and was able to get to the store and she could get to her appointments.
Patient denied any DME in her home.
She has had VN services in the past she believes through [place].
She has never been to a SNF.
She has a prescription plan and uses the [facility] for all of her medications.
Her PCP is Dr. Barney العلي.
Patient was tangential at times and CM had to redirect her but she was able to redirect and answer questions. Will advise patient of recommendations on behalf of medical staff for post acute care.
Plan: Case management will continue to follow and assist with discharge planning. PT recommending Acute rehab. Will discuss with patient and family.
[2024-02-07] MEDS: LIPITOR 40 MG PO (17:28)
--- NOTE | 2024-02-08 01:33 | PTCARENOTE ---
As per patient request, this nurse reached out to [employer] for Benadryl and Mucinex(to help with allergy and sleep). New order received for Mucinex. but patient is sleeping when this nurse was going to adm the med. Will wait until patient wakes up.
[2024-02-08 03:09] VITALS: BP 120/90
[2024-02-08] MEDS: MUCINEX 600 MG PO (03:30)
[2024-02-08 05:51] LABS: Hematocrit 34.7 % (37.0-47.0); Hemoglobin 11.7 g/dL (12.0-16.0); Mean Corp Hgb Conc. 33.7 g/dL (33.0-37.0); Mean Corpuscular Hgb 28.1 pg (27.0-31.0); Mean Corpuscular Volume 83.2 fL (81.0-99.0); Platelet Count 268 10^3/uL (130-400); Red Blood Cell Count 4.17 10^6/uL (4.20-5.40); Red Cell Dist. Width 12.7 % (11.5-14.5); White Blood Cell Count 10.7 10^3/uL (4.8-10.8)
[2024-02-08 06:22] LABS: Blood Urea Nitrogen 16 mg/dl (7-17); Calcium 9.3 mg/dl (8.4-10.2); Carbon Dioxide 29 mmol/L (22-30); Chloride 105 mmol/L (98-107); Estimated Creatinine Clearance 69 ml/min; Glucose 121 mg/dl (70-99); Potassium 3.6 mmol/L (3.5-5.1); Sodium 142 mmol/L (135-145); eGFR > 60.00
[2024-02-08] MEDS: VITAMIN D3 (cholecalciferol) 25 MCG PO (08:01)
[2024-02-08] MEDS: ASPIR LOW (ENTERIC COATED) 81 MG PO (08:01)
[2024-02-08] MEDS: LYRICA 150 MG PO ×2 (08:01→20:43)
[2024-02-08] MEDS: WELLBUTRIN XL (24 hour extended release) 300 MG PO (08:01)
[2024-02-08] MEDS: PROTONIX 40 MG PO (08:01)
[2024-02-08] MEDS: COZAAR 50 MG PO (08:02)
--- NOTE | 2024-02-08 08:26 | W.PN.HOSP.TC ---
Today's Communication/Plan
-
PT OT reeval. Discharge planning in progress.
Assessment / Plan
Assessment / Plan
Physical exam:
General: Acutely ill
HEENT: Normocephalic, Atraumatic and Moist Mucous Membranes
Respiratory: Clear to Auscultation; Negative Wheezes, Rales or Rhonchi
Cardiac: Regular Rhythm and S1/S2
GI: Soft, Nontender and Nondistended
Musculoskeletal: No Clubbing, No Cyanosis and No Edema
Neuro: Awake, Alert and Oriented, able to speak fluently today.
Psych: Calm
A/P:
# Ambulatory dysfunction possible aphasia prior to presentation, unclear etiology, but overall I suspect vascular dementia:
Discussed with neurology on 02/06 and she will evaluate the patient and get back to us--> I have reviewed her consult.
PT and OT recommended acute rehab so senior compliance analyst consulted on 02/06--> awaiting recommendation
functional manager consulted on 02/06 for discharge disposition
Neurochecks can be stopped
Checked lipid profile--> LDL 46
-MRI brain--> no acute abnormalities but chronic findings such as old CVAs
-Carotid ultrasound no significant stenosis
-cont Aspirin 81 mg daily
-Cont Lipitor(LDL 46)
-Vitamin B12 328, TSH 2.01, UA unremarkable, urine tox only positive for tricyclics, and CPK normal 82
-Updated daughter and over the phone, Ping and Stan respectively.
-Later on met with daughter and again at bedside today. I explained to them that she was medically ready for discharge, but we are looking into discharge disposition for acute rehab or subacute rehab or alternatively she can go home with
home health and daughter is interested to discuss with physical therapy today and business case analyst before making final decision. Discussed with RN and he will get physical therapy and business case analyst to discuss with family today.
#Abdominal pain
Family has brought up the issue of intermittent abdominal discomfort. Nevertheless, currently her abdominal exam is benign and she does not complain of any abdominal pain at all. If she becomes symptomatic we can address and order images as
appropriate but not needed currently. I discussed with them that it would be a good idea to follow-up with GI as outpatient. She has not had an EGD in the past and last colonoscopy was more than 20 years ago. Continue PPI.
#Hypokalemia
K improved to 3.6 today
#Breast cancer DCIS
Dx 11/07/2022 with lumpectomy and radiation completed February 2023
Follows with [facility]
#Active smoker
1 pack a day x 57 years
-Nicotine patch 21 Mg
-Cessation advised
#HTN�benign
-Stable
-Continue losartan
#GERD
Continue omeprazole
#Hx migraines
Takes butalbital/aspirin/caffeine as needed
#Spinal stenosis/peripheral neuropathy
-Continue Lyrica 150 mg p.o. 3 times daily, Flexeril twice daily as needed spasms
#Insomnia
-Continue amitriptyline 150 mg at bedtime
Renal calculi Hx
DVT prophylaxis
SCDs
Full code
Anticipated Discharge: 24 - 48 hours
Subjective/Interval History
-
Date of Service: February 08, 2024
Patient no new complaints. She does feel some generalized weakness and agrees cognitive issues but overall she feels improved compared to when she came in. Remains afebrile.
Objective Data
-
Labs:
Laboratory Results
02/08/24
05:33
WBC 10.7
Hgb 11.7 L
Hct 34.7 L
Plt Count 268
Sodium 142
Potassium 3.6
Chloride 105
Carbon Dioxide 29
BUN 16
Creatinine 0.6
Glucose 121 H
Calcium 9.3
Vital Signs:
Vital Signs
Temp Pulse Resp BP Pulse Ox
97.9 F 72 20 144/81 95
02/08/24 03:09 02/08/24 08:02 02/08/24 03:09 02/08/24 08:02 02/08/24 03:09
I&O
02/07/24 02/08/24 02/09/24
06:59 06:59 06:59
Intake Total 480 / 480
Output Total 480 / 480
Balance 0 / 0
--- NOTE | 2024-02-08 08:26 | W.PN.NEURO.1 ---
Documented by User: Tri Raman NP 02/08/24 11:13
Today's Communication / Plan
-
.
Neuro Assessment/Plan
Assessment
This is a 73-year-old female who presented to on February 06, 2024 with language dysfunction, more forgetful, having trouble getting correct words out, legs are weak, couldn't even walk up the stairs.
-CT head 02/06/24: No CT evidence for acute intracranial hemorrhage or transcortical infarct. Mild diffuse cerebral and cerebellar volume loss. 6 mm chronic lacunar infarct in the right putamen. Small chronic white matter infarcts and mild white
matter leukoaraiosis in the frontal lobes and left external capsule.
-MRI Brain 02/07/24: No MRI evidence for acute infarct or intracranial hemorrhage. 1.1 cm chronic periventricular white matter infarct in the anterior left frontal lobe. 7 mm chronic lacunar infarct in the right putamen. Mild white matter
leukoaraiosis in both cerebral hemispheres. Mild diffuse cerebral and cerebellar volume loss.
-Carotid Ultrasound 02/08/24: pending
I. Multifactorial encephalopathy (vascular, toxic, neurodegenerative?)
II.� Ambulatory dysfunction, improving.
III. 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
IV. Chronic nicotine usage.
Plan
-Continue aspirin 81mg daily.
-Carotid ultrasound final read pending.
-Fall precautions.
-Infection workup per primary team, leukocytosis improved.
-Goal normotension.
-LDL goal <70. LDL is 46. Continue atorvastatin 40mg daily.
-Goal normoglycemia, hbA1c is 6.4.
-PT/OT/ST evaluations.
-Smoking cessation counseling ordered.
-NIHSS and Neurological checks per unit guidelines.
-Provide patient with a stroke education packet.
-Patient needs outpatient neuropsychological testing.
-Will follow as-needed. Please contact our Neurology service with any questions/concerns.
Subjective/Objective
Subjective Data
Date of Service: February 08, 2024
No acute events overnight. Patient seems improved today, able to hold a fluent/oriented conversation and walk in the hallway without assistance. She denies any headache, dizziness, vision changes, speech/swallow difficulty, nausea, numbness,
weakness, chest pain, palpitations, and shortness of breath.
Objective Data
Vital Signs
Temp Pulse Resp BP Pulse Ox
97.9 F 72 20 144/81 95
02/08/24 03:09 02/08/24 08:02 02/08/24 03:09 02/08/24 08:02 02/08/24 03:09
Lab Results
02/08/24 05:33
02/08/24 05:33
Sodium 142 mmol/L (135-145) 02/08/24 05:33
Potassium 3.6 mmol/L (3.5-5.1) 02/08/24 05:33
BUN 16 mg/dl (7-17) 02/08/24 05:33
Glucose 121 mg/dl (70-99) H 02/08/24 05:33
Calcium 9.3 mg/dl (8.4-10.2) 02/08/24 05:33
LDL Cholesterol, Calc 46 mg/dl 02/07/24 06:21
Vitamin B12 Cancelled 02/07/24 11:37
Ur Buprenorphine Negative (Negative) 02/07/24 15:42
Patient Allergies
amoxicillin [From Augmentin] Allergy (Verified 02/06/24 16:27)
Rash
clavulanic acid [From Augmentin] Allergy (Verified 02/06/24 16:27)
Rash
indomethacin [From Indocin] Allergy (Verified 02/06/24 16:27)
Rash
tolmetin [From Tolectin] Allergy (Verified 02/06/24 16:34)
Rash
varenicline [From Chantix] Allergy (Verified 02/06/24 16:34)
Nausea / Vomiting
LDL Level: <70, continue statin
Review of Systems
-
History Source: Patient
EENT: Negative Blurry Vision, Decreased Vision or Swallowing Difficulty
Respiratory: Negative Cough or Trouble Breathing
Cardiac: Negative Chest Pain or Palpitations
Abdomen/GI: Negative Nausea
Neuro: Negative Dizzy, Headache, Weakness, Numbness, Ataxia, Tremors or Speech Problem
Physical Exam
-
General: No Apparent Distress
Eyes: No Ptosis and PERRLA
HEENT: Normocephalic and Atraumatic
Neck: Full Range of Motion
Respiratory: No Dyspnea
GI: Non-distended
Extremities: No Clubbing, No Cyanosis and No Edema
Extended Neurological Exam
Mood & Affect: Mood Unremarkable and Affect Unremarkable
Attention Span & Concentration: Awake, Alert and Interactive
Memory: Unremarkable (AAOx3. Next holiday: . Most recent holidays: , . Able to state the months of the year in reverse correctly.)
Tremor: Hand Tremor Absent and Head Tremor Absent
Involuntary Movement: None
Speech: Quality Unremarkable, Quantity Unremarkable and Rate of Production Unremarkable
Cranial Nerve II: Left Eye: Pupillary Reactivity Unremarkable, Pupillary Size Unremarkable and Visual Holman Intact
Cranial Nerve II: Right Eye: Pupillary Reactivity Unremarkable, Pupillary Size Unremarkable and Visual Holman Intact
Cranial Nerves III, IV, : Extraocular Movement: Extraocular Movement Full in all Directions
Cranial Nerve V: Facial Sensation: Intact to Light Touch
Cranial Nerve VII: Facial Symmetry: Normal Facial Symmetry
Cranial Nerve VIII: Hearing: Unremarkable Hearing to Normal Conversational Volume
Cranial Nerves IX, X: Palate Movement: Palate Elevation Symmetric
Cranial Nerve XI: Shoulder Shrug: Unremarkable
Cranial Nerve XII: Tongue Protusion: Midline
Muscle Strength, Overall: Full Throughout
Muscle Bulk & Tone: Bulk Unremarkable and Tone Unremarkable
Pronator Drift: No Drift in Upper Extremities and No Drift in Lower Extremities
Touch Sensation: Double Simultaneous Stimulation Unremarkable
Coordination: Wnblih-chxn-ehardu Testing Unremarkable
Babinski Sign: Absent Bilaterally
Gait & Station: Up from Seated Without Problem
Data Reviewed
-
CT Head: Report Reviewed and Image Reviewed
MRI Head: Report Reviewed and Image Reviewed
Carotid Ultrasound: Pending
Labs: Report Reviewed
Lipid Profile: Report Reviewed
HgbA1C: Report Reviewed
Reviewed with: Physician and Patient
NIH Stroke Score
Subsequent NIH Scale
Date of Subsequent NIH Scale: 02/08/24
Time of Subsequent NIH Scale: 09:30
NIH Stroke Score
Level of Consciousness: 0 - Alert
LOC Questions: 0-Answers both correctly
LOC Commands: 0-Performs both correctly
Best Horizontal Gaze: 0-Normal
Visual Holman: 0=Normal, no visual loss
Facial Palsy: 0=Normal, symmetrical
Motor - Right Arm: 0=No drift 10 seconds
Motor - Left Arm: 0=No drift 10 seconds
Motor - Right Le-No drift 5 seconds
Motor - Left Le-No drift 5 seconds
Limb Ataxia: 0-Absent
Sensation: 0-Normal
Best Language: 0-No aphasia
Dysarthria: 0-Normal
Extinction and Inattention: 0-No abnormality
Total Score:: 0
Medications
-
Active Medications
Generic Name Dose Route Start Last Admin
Trade Name Freq PRN Reason Stop Dose Admin
Acetaminophen 650 mg 02/06/24 22:59
Acetaminophen 650 Mg Rectal Suppository RECTAL 03/05/24 22:58
Q4HPRN PRN
DENNY, mild pain, or temp >100.4F
Acetaminophen 650 mg 02/06/24 22:59
Acetaminophen 325 Mg Tablet PO 03/05/24 22:58
Q4HPRN PRN
DENNY, mild pain, or temp >100.4F
Amitriptyline HCl 150 mg 02/06/24 23:00 02/07/24 20:40
Amitriptyline 75 Mg Tablet PO 03/05/24 22:59 150 mg
HS LUIS Administration
Aspirin 81 mg 02/07/24 08:00 02/08/24 08:01
Aspirin 81 Mg (Enteric Coated) Tablet PO 03/06/24 07:59 81 mg
DAILY LUIS Administration
Atorvastatin Calcium 40 mg 02/07/24 18:00 02/07/24 17:28
Atorvastatin (Lipitor) 40 Mg Tablet PO 03/06/24 17:59 40 mg
QPM LUIS Administration
Bupropion HCl 300 mg 02/07/24 08:00 02/08/24 08:01
Bupropion (24hr) Extended Release 300 Mg Tablet PO 03/06/24 07:59 300 mg
DAILY LUIS Administration
Cholecalciferol 25 mcg 02/07/24 08:00 02/08/24 08:01
Cholecalciferol (Vitamin D3) 25 Mcg Tablet (1,000 Units) PO 03/06/24 07:59 25 mcg
DAILY LUIS Administration
Cyclobenzaprine HCl 10 mg 02/06/24 22:59 02/07/24 01:22
Cyclobenzaprine 10 Mg Tablet PO 03/05/24 22:58 10 mg
BIDPRN PRN Administration
spasms
Docusate Sodium 100 mg 02/06/24 22:59
Docusate Sodium 100 Mg Capsule PO 03/05/24 22:58
DAILYPRN PRN
constipation
Losartan Potassium 50 mg 02/07/24 08:00 02/08/24 08:02
Losartan 50 Mg Tablet PO 03/06/24 07:59 50 mg
DAILY LUIS Administration
Pantoprazole Sodium 40 mg 02/07/24 08:00 02/08/24 08:01
Pantoprazole 40 Mg Delayed Release Tablet PO 03/06/24 07:59 40 mg
DAILY LUIS Administration
Pregabalin 150 mg 02/07/24 01:30 03/22/24 08:01
Pregabalin 75 Mg Capsule PO 03/06/24 01:29 150 mg
BID LUIS Administration
Sodium Chloride 0 flush 02/06/24 23:00
Sodium Chloride 0.9% (Flush) Syringe IV 03/05/24 22:59
PER PROTOCOL LUIS
Home Medications
Medication Instructions Recorded
amitriptyline 150 mg tablet 150 mg PO HS 02/06/24
aspirin 325 mg tablet 325 mg PO BIDPRN PRN backs pain 02/06/24
bupropion HCl 300 mg 24 hr tablet, 300 mg PO DAILY 02/06/24
extended release (Wellbutrin XL)
lbuyjnqhrx-ejhuzoe-dgygklfm 50 1 cap PO BIDPRN PRN migraines 02/06/24
mg-325 mg-40 mg capsule
cholecalciferol (vitamin D3) 25 25 mcg PO DAILY 02/06/24
mcg (1,000 unit) tablet (Vitamin
D3)
conjugated estrogens 0.625 mg 0.625 mg PO DAILY 02/06/24
tablet (Premarin)
cyclobenzaprine 10 mg tablet 10 mg PO BIDPRN PRN spasms 02/06/24
docusate sodium 100 mg capsule 100 mg PO DAILYPRN PRN constipation 02/06/24
(Colace)
fenofibrate nanocrystallized 145 145 mg PO DAILY 02/06/24
mg tablet (Tricor)
glucosamine sulfate dipotassium Cl 1 cap PO DAILY 02/06/24
500 mg-chondroitin 400 mg capsule
(Glucosamine Sulfate 2
KCL-Chondroitin)
hydrocodone 7.5 mg-ibuprofen 200 1 tab PO BIDPRN PRN migraines 02/06/24
mg tablet
losartan 50 mg tablet 50 mg PO DAILY 02/06/24
omeprazole 20 mg tablet,delayed 20 mg PO DAILY 02/06/24
release
pregabalin 150 mg capsule (Lyrica) 150 mg PO TID 02/06/24
diphenhydramine HCl 50 mg tablet 50 mg PO PRN PRN cough 02/07/24
(Benadryl Allergy)

Documented by User: Rosibel Montelongo MD 02/08/24 12:47
NIH Stroke Score
NIH Stroke Score
Total Score:: 0
[2024-02-08] MEDS: COLACE 100 MG PO (11:29)
[2024-02-08 12:00] VITALS: BP 121/66
[2024-02-08 15:00] VITALS: BP 125/79; PULSE 71; O2SAT 97
--- NOTE | 2024-02-08 15:38 | CM ---
PT/OT recs - acute rehab
Spoke with pt, and daughter.
Family reporting they feel pt is back to baseline and would like her to be reevaluated.
PT/OT to see pt
Plan - tbd
[2024-02-08 15:45] VITALS: BP 112/73
[2024-02-08 15:52] VITALS: BP 125/79; PULSE 111; O2SAT 97
--- NOTE | 2024-02-08 16:17 | CON.MD ---
Documented by User: Sabrina June PA-C 02/08/24 18:12
Consultation - Medical
-
Referring Provider:
Chief Complaint: Ambulatory Dysfunction
History of Present Illness: 73-year-old female with PMH of (HTN, �breast CA 11/09 with lumpectomy and radiation completed 02/2023) who presented to on February 06, 2024 with language dysfunction, more forgetful, having trouble getting correct words
out, legs weakness.CT scan of head negative for infarcts or bleed. �No MRI evidence for acute infarct or intracranial hemorrhage. 1.1 cm chronic periventricular white matter infarct in the anterior left frontal lobe. 7 mm chronic lacunar infarct in
the right putamen. Mild white matter leukoaraiosis in both cerebral hemispheres. Patient's stroke-like symptoms have improved. Neuropsychology testing recommended outpatient.
MRI of Head
1. � No MRI evidence for acute infarct or intracranial hemorrhage.
2. � 1.1 cm chronic periventricular white matter infarct in the anterior left frontal lobe.
3. � 7 mm chronic lacunar infarct in the right putamen.
4. � Mild white matter leukoaraiosis in both cerebral hemispheres.
5. � Mild diffuse cerebral and cerebellar volume loss.
Ultrasound:
No significant carotid bulb plaque demonstrated on either side, and no evidence of hemodynamically significant carotid stenosis as per modified Society of Radiologists in Ultrasound consensus criteria (IAC carotid criteria white paper, 2020).
2. Incidental right thyroid nodule, measuring 2.1 cm in diameter. Consider dedicated thyroid ultrasound for further characterization.
Past Medical History: HTN, �breast CA 11/09 with lumpectomy and radiation completed 02/2023
Procedure History: lumpectomy and radiation completed 02/2023, Appendectomy
Family History: noncontributory
Social History:
Functional Level Premorbidly: Independent with all activities
Functional Level Currently:
Tobacco: smoker
Alcohol: Denies
Drug use: Denies
Lives with: family
24-hour assistance available:
Number of floors: multi level
# steps to enter:
# steps to second floor: FF
Potential First floor set up:
Driving:
Occupation: retired
�
Allergies:
Allergy/AdvReac Type Severity Reaction Status Date / Time
amoxicillin [From Augmentin] Allergy Rash Verified 02/06/24 16:27
clavulanic acid Allergy Rash Verified 02/06/24 16:27
[From Augmentin]
indomethacin [From Indocin] Allergy Rash Verified 02/06/24 16:27
tolmetin [From Tolectin] Allergy Rash Verified 02/06/24 16:34
varenicline [From Chantix] Allergy Nausea / Verified 02/06/24 16:34
Vomiting
Review of Systems:
Constitutional: (x) Normal _
Eye: (x) Normal _
Ear/Nose/Throat: (x) Normal _
Respiratory: (x) Normal _
Cardiovascular: (x) Normal _
Gastrointestinal: (x) Normal _
Genitourinary: (x) Normal _
Musculoskeletal: (x) weakness
Integumentary: (x) Normal _
Neurologic: (x) aphasia
Psychiatric: (x) Normal _
Endocrine: (x) Normal _
Hematologic/Lymphatic: (x) Normal _
Allergic/Immunologic: (x) Normal _
Medications:
Active Current Visit Medication List
Category Date Time Status
Acetaminophen [Tylenol/Feverall] Med 02/06/24 22:59 Active
650 mg RECTAL Q4HPRN PRN
Acetaminophen [Tylenol] Med 02/06/24 22:59 Active
650 mg PO Q4HPRN PRN
Amitriptyline [Elavil] Med 02/06/24 23:00 Active
150 mg PO HS
Aspirin Low Dose EC [Aspir Low (Enteric Coated)] Med 02/07/24 08:00 Active
81 mg PO DAILY
Atorvastatin [Lipitor] Med 02/07/24 18:00 Active
40 mg PO QPM
Bupropion(24Hr)Extended Releas [WELLBUTRIN XL (24 hour Med 02/07/24 08:00 Active
extended release)]
300 mg PO DAILY
Cholecalciferol (Vitamin D3) [VITAMIN D3 ( Med 02/07/24 08:00 Active
cholecalciferol)]
25 mcg PO DAILY
Cyclobenzaprine HCl [Flexeril] Med 02/06/24 22:59 Active
10 mg PO BIDPRN PRN
Docusate Sodium [Colace] Med 02/06/24 22:59 Active
100 mg PO DAILYPRN PRN
Flush (0.9% Sodium Chloride) [Flush (Nss)] Med 02/06/24 23:00 Active
See Dose Instructions IV PER PROTOCOL
Losartan [Cozaar] Med 02/07/24 08:00 Active
50 mg PO DAILY
Pantoprazole [Protonix] Med 02/07/24 08:00 Active
40 mg PO DAILY
Pregabalin [Lyrica] Med 02/07/24 01:30 Active
150 mg PO BID
Vitals:
Temp Pulse Resp BP Pulse Ox
98.3 F 81 18 112/73 94
02/08/24 15:45 02/08/24 15:45 02/08/24 15:45 02/08/24 15:45 02/08/24 15:45
Height 5 ft
Actual Weight 60.555 kg
Body Mass Index (BMI) 26.1
Physical Exam:
General Appearance/Observation: Well-developed, well-nourished individual in no apparent distress.
Pain/Comfort Assessment: Denies
Mood/Affect: Appropriate, pleasant
Integumentary/Operative Site:
�� Pressure Ulcer Evaluation: absent over heels.
��
�� Other Type of Wound: absent
��
Eyes: Conjunctiva/Lids: normal ��� Pupils: pupils equal round and reactive to light and Accommodation
Ears/Nose/Throat: oral mucosa moist,� throat clear.������������ Lips/Teeth/Gums: normal
Neck: No muscle spasm or tenderness
Cardiovascular: Heart: regular, no murmur
Pulses: dorsalis pedis 2+ bilaterally
Respiratory: Respiratory Effort/Chest Expansion: normal ������ Auscultation: Clear to auscultation bilaterally
Gastrointestinal: abdomen not tender, no distension, normal abdominal bowel sounds
Genitourinary: No Aguirre
Extremities: Edema: None Cyanosis: None Trophic changes: None
Neurology Exam:
Orientation: Alert, Oriented to self, Time, Place
Memory: Intact for immediately medical concerns
Higher cortical function
Repetition: Intact
Comprehension: Intact
Two step command: Intact
Naming: Intact
Cranial Nerves:
�� CNII: Pupillary light reflex: Intact��� Visual Field: Intact
�� CN III, IV, : Extraocular muscles: Intact
�� CN V: Facial Sensation at Forehead: Intact, Maxilla: Intact, Mandible: Intact
�� CN VII: Facial movement: Symmetric
�� CN VIII: Hearing: Normal
�� CN IX/X: Speech & swallow: Normal, Position of Uvula: Midline
�� CN XI: Shoulder shrug: Symmetric
�� CN XII: Tongue protrusion: Midline
Sensory:
�� Light touch: Intact in bilateral upper and lower extremities. �Double Simultaneous Stimulation Unremarkable. Shaggy arthritic changes noted in both hands and digits
��
Reflexes:
�� Biceps: 2+ bilaterally
�� Brachioradialis: 2+ bilaterally
�� Triceps: 2+ bilaterally
�� Patellar: 2+ bilaterally
�� Achilles: absent bilaterally
�� Babinski: negative bilaterally
�� Shaquille: Negative bilaterally
Cerebellar: Dysmetria/Ataxia: None
Musculoskeletal:
Motor: (Manual muscle scale 0-5)
Muscle SA EF WE EE FF FA HF KE DF EHL PF
Right� 5 5 5 5 5 5 5 5 5 5 5
Left 5 5 5 5 5 5 5 5 5 5 5
Tone: Normal in all extremities
Range of Motion: Passively within normal limits in all extremities
Lab Results
Labs
WBC 10.7 10^3/uL (4.8-10.8) 02/08/24 05:33
RBC 4.17 10^6/uL (4.20-5.40) L 02/08/24 05:33
Hgb 11.7 g/dL (12.0-16.0) L 02/08/24 05:33
Hct 34.7 % (37.0-47.0) L 02/08/24 05:33
MCV 83.2 fL (81.0-99.0) 02/08/24 05:33
MCH 28.1 pg (27.0-31.0) 02/08/24 05:33
MCHC 33.7 g/dL (33.0-37.0) 02/08/24 05:33
RDW 12.7 % (11.5-14.5) 02/08/24 05:33
Plt Count 268 10^3/uL (130-400) 02/08/24 05:33
MPV 11.0 fL (7.4-10.4) H 02/08/24 05:33
Abs Immat Gran (auto) 0.1 10^3/uL (0-0.05) H 02/07/24 06:21
Absolute Neuts (auto) 9.5 10^3/uL (1.4-6.5) H 02/07/24 06:21
Absolute Lymphs (auto) 1.8 10^3/uL (1.2-3.4) 02/07/24 06:21
Absolute Monos (auto) 0.9 10^3/uL (0.1-0.6) H 02/07/24 06:21
Absolute Eos (auto) 0.1 10^3/uL (0-0.7) 02/07/24 06:21
Absolute Basos (auto) 0.0 10^3/uL (0-0.2) 02/07/24 06:21
Immature Gran % 0.8 % (0-0.5) H 02/07/24 06:21
Neutrophils % 76.0 % (42.2-75.2) H 02/07/24 06:21
Lymphocytes % 14.7 % (20.5-51.1) L 02/07/24 06:21
Monocytes % 7.4 % (1.7-9.3) 02/07/24 06:21
Eosinophils % 0.8 % (0-6) 02/07/24 06:21
Basophils % 0.3 % (0-2) 02/07/24 06:21
Nucleated RBC % 0 % 02/07/24 06:21
Sodium 142 mmol/L (135-145) 02/08/24 05:33
Potassium 3.6 mmol/L (3.5-5.1) 02/08/24 05:33
Chloride 105 mmol/L (98-107) 02/08/24 05:33
Carbon Dioxide 29 mmol/L (22-30) 02/08/24 05:33
BUN 16 mg/dl (7-17) 02/08/24 05:33
Creatinine 0.6 mg/dL (0.6-1.0) 02/08/24 05:33
Estimated Creat Clear 69 ml/min 02/08/24 05:33
eGFR > 60.00 02/08/24 05:33
Glucose 121 mg/dl (70-99) H 02/08/24 05:33
Hemoglobin A1c 6.4 % (4.0-5.6) H 02/07/24 06:21
Calcium 9.3 mg/dl (8.4-10.2) 02/08/24 05:33
Total Bilirubin 0.5 mg/dl (0.2-1.3) 02/06/24 16:40
AST 25 U/L (14-36) 02/06/24 16:40
ALT 20 U/L (0-35) 02/06/24 16:40
Alkaline Phosphatase 68 U/L (38-126) 02/06/24 16:40
Creatine Kinase Cancelled 02/07/24 11:37
Total Protein 6.4 g/dl (6.3-8.2) 02/06/24 16:40
Albumin 3.7 g/dl (3.5-5.0) 02/06/24 16:40
Triglycerides 139 mg/dl (10-149) 02/07/24 06:21
Total Cholesterol 122 mg/dl (50-199) 02/07/24 06:21
LDL Cholesterol, Calc 46 mg/dl 02/07/24 06:21
VLDL Cholesterol, Calc 27 mg/dl (0-30) 02/07/24 06:21
HDL Cholesterol 49 mg/dl 02/07/24 06:21
Vitamin B12 Cancelled 02/07/24 11:37
TSH (Reflex) Cancelled 02/07/24 11:37
Urine Color Yellow 02/06/24 17:20
Urine Clarity Clear (Clear) 02/06/24 17:20
Urine pH 6.0 (5.0-9.0) 02/06/24 17:20
Ur Specific Rush 1.010 (<1.030) 02/06/24 17:20
Urine Ketones Negative (Negative) 02/06/24 17:20
Ur Occult Blood Reflex Negative (Negative) 02/06/24 17:20
Urine Nitrite (Reflex) Negative (Negative) 02/06/24 17:20
Urine Bilirubin Negative (Negative) 02/06/24 17:20
Urine Urobilinogen Negative (Neg - 1+) 02/06/24 17:20
Leukocyte Esterase Rfl Trace (Negative) A 02/06/24 17:20
Urine RBC 0-2 /HPF (0-2) 02/06/24 17:20
Urine WBC (Reflex) 3-5 /HPF (0-5) 02/06/24 17:20
Ur Squamous Epith Cells 6-10 /LPF (Few) 02/06/24 17:20
Urine Bacteria (Reflex) Few (Negative) A 02/06/24 17:20
Urine Glucose Negative (Negative) 02/06/24 17:20
Urine Albumin (Reflex) Negative (Neg - Trace) 02/06/24 17:20
Urine Opiates Screen Negative (Negative) 02/07/24 15:42
Ur Buprenorphine Negative (Negative) 02/07/24 15:42
Ur Oxycodone Screen Negative (Negative) 02/07/24 15:42
Urine Methadone Screen Negative (Negative) 02/07/24 15:42
Ur Barbiturates Screen Negative (Negative) 02/07/24 15:42
Ur Tricyclics Screen Positive (Negative) H 02/07/24 15:42
Ur Phencyclidine Scrn Negative (Negative) 02/07/24 15:42
Ur Amphetamines Screen Negative (Negative) 02/07/24 15:42
U Methamphetamines Scrn Negative (Negative) 02/07/24 15:42
U Benzodiazepines Scrn Negative (Negative) 02/07/24 15:42
Urine Cocaine Screen Negative (Negative) 02/07/24 15:42
U Marijuana (THC) Screen Negative (Negative) 02/07/24 15:42
SARS-CoV-2 Antigen Negative (Negative) 02/06/24 19:20
�
Diagnostic Results: as per HPI
Assessment 73-year-old female with PMH of (HTN, �breast CA 11/09 with lumpectomy and radiation completed 02/2023) who presented to on February 06, 2024 with language dysfunction, more forgetful, having trouble getting correct words out, legs
weakness.CT scan of head negative for infarcts or bleed. �No MRI evidence for acute infarct or intracranial hemorrhage. 1.1 cm chronic periventricular white matter infarct in the anterior left frontal lobe. 7 mm chronic lacunar infarct in the right
putamen. Mild white matter leukoaraiosis in both cerebral hemispheres. Patient's stroke-like symptoms have improved. Neuropsychology testing recommended outpatient.
Plan
PM&R PT/OT to increase independence with ADLs, improve balance, coordination, endurance, strength, mobility, community reintegration, decreased burden of care on others and family education.
Encephalopathy?: Neuropsychology testing recommended outpatient per neurology. Patient strokelike symptoms have improved.
Ambulatory dysfunction: improved. Patient ambulating 100 feet x 2 without AD and close supervision.
Aphasia: Resolved. Speech therapy evaluation as outpatient if neuropsychology testing abnormal
HTN: continue medications, monitor closely
HLD: Atorvastatin
Psych: Psychology consult.� Monitor mood, adjust medications as needed.
Skin: monitor for pressure sores/rashes/lesions.
Pain: acetaminophen as needed.
Bowel: Colace and Senna, PRN bisacodyl.
Bladder: Time void, PVRs, PRN straight cath.
Tobacco Abuse: Smoking cessation counseling. Need to find out why smoking whether it is nicotine withdrawal, habit, or oral fixation.
GI Prophylaxis: Pantoprazole
DVT Prophylaxis: Mechanical, heparin SC
Pulmonary: Incentive spirometry
Safety: Continue to reinforce assistance with all transfers.
Code Status:� Full code
Dispo (date/plan/equipment needs): Home with family care.� Social history reviewed.
Functional and Medical Goals: Modified Independent with ADL�s, ambulation, transfers
Summary recommendation:
Discharge Destination: Patient would benefit from SNF or home health care therapy based on her current function of ambulating 100 feet x 2 without AD and close supervision, bed mobility�mod I, transfer�supervision, grooming-independent,
toileting-supervision.
Encephalopathy?: Neuropsychology testing recommended as outpatient per neurology. Patient strokelike symptoms have improved.
Ambulatory dysfunction: improved. Patient ambulating 100 feet x 2 without AD and close supervision.
Aphasia: Resolved. Speech therapy evaluation as outpatient if neuropsychology testing abnormal
HTN: continue medications, monitor closely
Bowel: Colace and Senna, PRN bisacodyl.
DVT Prophylaxis: Mechanical, heparin SC

Documented by User: Holger Prater MD 02/08/24 19:13
Consultation - Medical
-
Referring Provider:
Chief Complaint: Ambulatory Dysfunction
History of Present Illness: 73-year-old female with PMH of (HTN, �breast CA 11/09 with lumpectomy and radiation completed 02/2023) who presented to on February 06, 2024 with language dysfunction, more forgetful, having trouble getting correct words
out, legs weakness.CT scan of head negative for infarcts or bleed. �No MRI evidence for acute infarct or intracranial hemorrhage. 1.1 cm chronic periventricular white matter infarct in the anterior left frontal lobe. 7 mm chronic lacunar infarct in
the right putamen. Mild white matter leukoaraiosis in both cerebral hemispheres. Patient's stroke-like symptoms have improved. Neuropsychology testing recommended outpatient.
MRI of Head
1. � No MRI evidence for acute infarct or intracranial hemorrhage.
2. � 1.1 cm chronic periventricular white matter infarct in the anterior left frontal lobe.
3. � 7 mm chronic lacunar infarct in the right putamen.
4. � Mild white matter leukoaraiosis in both cerebral hemispheres.
5. � Mild diffuse cerebral and cerebellar volume loss.
Ultrasound:
No significant carotid bulb plaque demonstrated on either side, and no evidence of hemodynamically significant carotid stenosis as per modified Society of Radiologists in Ultrasound consensus criteria (IAC carotid criteria white paper, 2020).
2. Incidental right thyroid nodule, measuring 2.1 cm in diameter. Consider dedicated thyroid ultrasound for further characterization.
Past Medical History: HTN, �breast CA 11/09 with lumpectomy and radiation completed 02/2023
Procedure History: lumpectomy and radiation completed 02/2023, Appendectomy
Family History: noncontributory
Social History:
Functional Level Premorbidly: Independent with all activities
Functional Level Currently:
Tobacco: smoker
Alcohol: Denies
Drug use: Denies
Lives with: family
24-hour assistance available: Possibly
Number of floors: 1
# steps to enter: 2
Driving: Yes
Occupation: retired
�
Allergies:
Allergy/AdvReac Type Severity Reaction Status Date / Time
amoxicillin [From Augmentin] Allergy Rash Verified 02/06/24 16:27
clavulanic acid Allergy Rash Verified 02/06/24 16:27
[From Augmentin]
indomethacin [From Indocin] Allergy Rash Verified 02/06/24 16:27
tolmetin [From Tolectin] Allergy Rash Verified 02/06/24 16:34
varenicline [From Chantix] Allergy Nausea / Verified 02/06/24 16:34
Vomiting
Review of Systems:
Constitutional: (x) abNormal _tired
Eye: (x) Normal _
Ear/Nose/Throat: (x) Normal _
Respiratory: (x) Normal _
Cardiovascular: (x) Normal _
Gastrointestinal: (x) Normal _
Genitourinary: (x) Normal _
Musculoskeletal: (x) weakness
Integumentary: (x) Normal _
Neurologic: (x) aphasia
Psychiatric: (x) Normal _
Endocrine: (x) Normal _
Hematologic/Lymphatic: (x) Normal _
Allergic/Immunologic: (x) Normal _
Medications:
Active Current Visit Medication List
Category Date Time Status
Acetaminophen [Tylenol/Feverall] Med 02/06/24 22:59 Active
650 mg RECTAL Q4HPRN PRN
Acetaminophen [Tylenol] Med 02/06/24 22:59 Active
650 mg PO Q4HPRN PRN
Amitriptyline [Elavil] Med 02/06/24 23:00 Active
150 mg PO HS
Aspirin Low Dose EC [Aspir Low (Enteric Coated)] Med 02/07/24 08:00 Active
81 mg PO DAILY
Atorvastatin [Lipitor] Med 02/07/24 18:00 Active
40 mg PO QPM
Bupropion(24Hr)Extended Releas [WELLBUTRIN XL (24 hour Med 02/07/24 08:00 Active
extended release)]
300 mg PO DAILY
Cholecalciferol (Vitamin D3) [VITAMIN D3 ( Med 02/07/24 08:00 Active
cholecalciferol)]
25 mcg PO DAILY
Cyclobenzaprine HCl [Flexeril] Med 02/06/24 22:59 Active
10 mg PO BIDPRN PRN
Docusate Sodium [Colace] Med 02/06/24 22:59 Active
100 mg PO DAILYPRN PRN
Flush (0.9% Sodium Chloride) [Flush (Nss)] Med 02/06/24 23:00 Active
See Dose Instructions IV PER PROTOCOL
Losartan [Cozaar] Med 02/07/24 08:00 Active
50 mg PO DAILY
Pantoprazole [Protonix] Med 02/07/24 08:00 Active
40 mg PO DAILY
Pregabalin [Lyrica] Med 02/07/24 01:30 Active
150 mg PO BID
Vitals:
Temp Pulse Resp BP Pulse Ox
98.3 F 81 18 112/73 94
02/08/24 15:45 02/08/24 15:45 02/08/24 15:45 02/08/24 15:45 02/08/24 15:45
Height 5 ft
Actual Weight 60.555 kg
Body Mass Index (BMI) 26.1
Physical Exam:
General Appearance/Observation: Well-developed, well-nourished individual in no apparent distress.
Pain/Comfort Assessment: Denies
Mood/Affect: Appropriate, pleasant
Integumentary/Operative Site:
�� Pressure Ulcer Evaluation: absent over heels.
��
Eyes: Conjunctiva/Lids: normal ��� Pupils: pupils equal round and reactive to light and Accommodation
Ears/Nose/Throat: oral mucosa moist,� throat clear.������������ Lips/Teeth/Gums: normal
Neck: No muscle spasm or tenderness
Cardiovascular: Heart: regular, no murmur
Pulses: dorsalis pedis 2+ bilaterally
Respiratory: Respiratory Effort/Chest Expansion: normal ������ Auscultation: Clear to auscultation bilaterally
Gastrointestinal: abdomen not tender, no distension, normal abdominal bowel sounds
Genitourinary: No Aguirre
Extremities: Edema: None Cyanosis: None Trophic changes: None
Neurology Exam:
Orientation: Alert, Oriented to self, Time, Place
Memory: Intact for immediately medical concerns
Higher cortical function
Repetition: Intact
Comprehension: Intact
Two step command: Intact
Naming: Intact
Cranial Nerves:
�� CNII: Pupillary light reflex: Intact��� Visual Field: Intact
�� CN III, IV, : Extraocular muscles: Intact
�� CN V: Facial Sensation at Forehead: Intact, Maxilla: Intact, Mandible: Intact
�� CN VII: Facial movement: Symmetric
�� CN VIII: Hearing: Normal
�� CN IX/X: Speech & swallow: Normal, Position of Uvula: Midline
�� CN XI: Shoulder shrug: Symmetric
�� CN XII: Tongue protrusion: Midline
Sensory:
�� Light touch: Intact in bilateral upper and lower extremities. �Double Simultaneous Stimulation Unremarkable. Shaggy arthritic changes noted in both hands and digits
��
Reflexes:
�� Biceps: 2+ bilaterally
�� Brachioradialis: 2+ bilaterally
�� Triceps: 2+ bilaterally
�� Patellar: 2+ bilaterally
�� Achilles: absent bilaterally
�� Babinski: negative bilaterally
�� Shaquille: Negative bilaterally
Cerebellar: Dysmetria/Ataxia: None
Musculoskeletal:
Motor: (Manual muscle scale 0-5)
Muscle SA EF WE EE FF FA HF KE DF EHL PF
Right� 5 5 5 5 5 5 5 5 5 5 5
Left 5 5 5 5 5 5 5 5 5 5 5
Tone: Normal in all extremities
Range of Motion: Passively within normal limits in all extremities
Lab Results
Labs
WBC 10.7 10^3/uL (4.8-10.8) 02/08/24 05:33
RBC 4.17 10^6/uL (4.20-5.40) L 02/08/24 05:33
Hgb 11.7 g/dL (12.0-16.0) L 02/08/24 05:33
Hct 34.7 % (37.0-47.0) L 02/08/24 05:33
MCV 83.2 fL (81.0-99.0) 02/08/24 05:33
MCH 28.1 pg (27.0-31.0) 02/08/24 05:33
MCHC 33.7 g/dL (33.0-37.0) 02/08/24 05:33
RDW 12.7 % (11.5-14.5) 02/08/24 05:33
Plt Count 268 10^3/uL (130-400) 02/08/24 05:33
MPV 11.0 fL (7.4-10.4) H 02/08/24 05:33
Abs Immat Gran (auto) 0.1 10^3/uL (0-0.05) H 02/07/24 06:21
Absolute Neuts (auto) 9.5 10^3/uL (1.4-6.5) H 02/07/24 06:21
Absolute Lymphs (auto) 1.8 10^3/uL (1.2-3.4) 02/07/24 06:21
Absolute Monos (auto) 0.9 10^3/uL (0.1-0.6) H 02/07/24 06:21
Absolute Eos (auto) 0.1 10^3/uL (0-0.7) 02/07/24 06:21
Absolute Basos (auto) 0.0 10^3/uL (0-0.2) 02/07/24 06:21
Immature Gran % 0.8 % (0-0.5) H 02/07/24 06:21
Neutrophils % 76.0 % (42.2-75.2) H 02/07/24 06:21
Lymphocytes % 14.7 % (20.5-51.1) L 02/07/24 06:21
Monocytes % 7.4 % (1.7-9.3) 02/07/24 06:21
Eosinophils % 0.8 % (0-6) 02/07/24 06:21
Basophils % 0.3 % (0-2) 02/07/24 06:21
Nucleated RBC % 0 % 02/07/24 06:21
Sodium 142 mmol/L (135-145) 02/08/24 05:33
Potassium 3.6 mmol/L (3.5-5.1) 02/08/24 05:33
Chloride 105 mmol/L (98-107) 02/08/24 05:33
Carbon Dioxide 29 mmol/L (22-30) 02/08/24 05:33
BUN 16 mg/dl (7-17) 02/08/24 05:33
Creatinine 0.6 mg/dL (0.6-1.0) 02/08/24 05:33
Estimated Creat Clear 69 ml/min 02/08/24 05:33
eGFR > 60.00 02/08/24 05:33
Glucose 121 mg/dl (70-99) H 02/08/24 05:33
Hemoglobin A1c 6.4 % (4.0-5.6) H 02/07/24 06:21
Calcium 9.3 mg/dl (8.4-10.2) 02/08/24 05:33
Total Bilirubin 0.5 mg/dl (0.2-1.3) 02/06/24 16:40
AST 25 U/L (14-36) 02/06/24 16:40
ALT 20 U/L (0-35) 02/06/24 16:40
Alkaline Phosphatase 68 U/L (38-126) 02/06/24 16:40
Creatine Kinase Cancelled 02/07/24 11:37
Total Protein 6.4 g/dl (6.3-8.2) 02/06/24 16:40
Albumin 3.7 g/dl (3.5-5.0) 02/06/24 16:40
Triglycerides 139 mg/dl (10-149) 02/07/24 06:21
Total Cholesterol 122 mg/dl (50-199) 02/07/24 06:21
LDL Cholesterol, Calc 46 mg/dl 02/07/24 06:21
VLDL Cholesterol, Calc 27 mg/dl (0-30) 02/07/24 06:21
HDL Cholesterol 49 mg/dl 02/07/24 06:21
Vitamin B12 Cancelled 02/07/24 11:37
TSH (Reflex) Cancelled 02/07/24 11:37
Urine Color Yellow 02/06/24 17:20
Urine Clarity Clear (Clear) 02/06/24 17:20
Urine pH 6.0 (5.0-9.0) 02/06/24 17:20
Ur Specific Rush 1.010 (<1.030) 02/06/24 17:20
Urine Ketones Negative (Negative) 02/06/24 17:20
Ur Occult Blood Reflex Negative (Negative) 02/06/24 17:20
Urine Nitrite (Reflex) Negative (Negative) 02/06/24 17:20
Urine Bilirubin Negative (Negative) 02/06/24 17:20
Urine Urobilinogen Negative (Neg - 1+) 02/06/24 17:20
Leukocyte Esterase Rfl Trace (Negative) A 02/06/24 17:20
Urine RBC 0-2 /HPF (0-2) 02/06/24 17:20
Urine WBC (Reflex) 3-5 /HPF (0-5) 02/06/24 17:20
Ur Squamous Epith Cells 6-10 /LPF (Few) 02/06/24 17:20
Urine Bacteria (Reflex) Few (Negative) A 02/06/24 17:20
Urine Glucose Negative (Negative) 02/06/24 17:20
Urine Albumin (Reflex) Negative (Neg - Trace) 02/06/24 17:20
Urine Opiates Screen Negative (Negative) 02/07/24 15:42
Ur Buprenorphine Negative (Negative) 02/07/24 15:42
Ur Oxycodone Screen Negative (Negative) 02/07/24 15:42
Urine Methadone Screen Negative (Negative) 02/07/24 15:42
Ur Barbiturates Screen Negative (Negative) 02/07/24 15:42
Ur Tricyclics Screen Positive (Negative) H 02/07/24 15:42
Ur Phencyclidine Scrn Negative (Negative) 02/07/24 15:42
Ur Amphetamines Screen Negative (Negative) 02/07/24 15:42
U Methamphetamines Scrn Negative (Negative) 02/07/24 15:42
U Benzodiazepines Scrn Negative (Negative) 02/07/24 15:42
Urine Cocaine Screen Negative (Negative) 02/07/24 15:42
U Marijuana (THC) Screen Negative (Negative) 02/07/24 15:42
SARS-CoV-2 Antigen Negative (Negative) 02/06/24 19:20
�
Diagnostic Results: as per HPI
Assessment 73-year-old female with PMH of (HTN, �breast CA 11/09 with lumpectomy and radiation completed 02/2023) who presented to on February 06, 2024 with language dysfunction, more forgetful, having trouble getting correct words out, legs
weakness.CT scan of head negative for infarcts or bleed. �No MRI evidence for acute infarct or intracranial hemorrhage. 1.1 cm chronic periventricular white matter infarct in the anterior left frontal lobe. 7 mm chronic lacunar infarct in the right
putamen. Mild white matter leukoaraiosis in both cerebral hemispheres. Patient's stroke-like symptoms have improved. Neuropsychology testing recommended outpatient.
Plan
PM&R PT/OT to increase independence with ADLs, improve balance, coordination, endurance, strength, mobility, community reintegration, decreased burden of care on others and family education.
Encephalopathy?: Neuropsychology testing recommended outpatient per neurology. Patient strokelike symptoms have improved.
Ambulatory dysfunction: improved. Patient ambulating 100 feet x 2 without AD and close supervision.
Aphasia: Resolved. Speech therapy evaluation as outpatient if neuropsychology testing abnormal
HTN: continue medications, monitor closely
HLD: Atorvastatin
Psych: Psychology consult.� Monitor mood, adjust medications as needed.
Skin: monitor for pressure sores/rashes/lesions.
Pain: acetaminophen as needed.
Bowel: Colace and Senna, PRN bisacodyl.
Bladder: Time void, PVRs, PRN straight cath.
Tobacco Abuse: Smoking cessation counseling. Need to find out why smoking whether it is nicotine withdrawal, habit, or oral fixation.
GI Prophylaxis: Pantoprazole
DVT Prophylaxis: Mechanical, heparin SC
Pulmonary: Incentive spirometry
Safety: Continue to reinforce assistance with all transfers.
Code Status:� Full code
Dispo (date/plan/equipment needs): Home with family care.� Social history reviewed.
Functional and Medical Goals: Modified Independent with ADL�s, ambulation, transfers
SUMMARY of RECOMMENDATIONS:
Discharge Destination: Patient would benefit from outpatient physical therapy based on her current function of ambulating 100 feet x 2 without AD and close supervision, bed mobility�mod I, transfer�supervision, grooming-independent,
toileting-supervision. She has assistance at home.
Encephalopathy?: Neuropsychology testing recommended as outpatient per neurology. Patient's stroke like symptoms have improved.
Ambulatory dysfunction: improved. Patient ambulating 100 feet x 2 without AD and close supervision.
Aphasia: Resolved. Speech therapy evaluation as outpatient if neuropsychology testing abnormal
HTN: continue medications, monitor closely
Bowel: Colace and Senna, PRN bisacodyl.
DVT Prophylaxis: Mechanical, heparin SC
Attending statement:
I saw and examined the patient today. Reviewed care plan with patient, therapy, nursing, and physician farm assistant. I agree with the above subjective, physical exam, and plan as documented above. Reviewed care plan with patient, son, .
Thank you for allowing me to care for your patient. Please contact me with any questions or concerns.
[2024-02-08] MEDS: LIPITOR 40 MG PO (17:02)
[2024-02-08] MEDS: ELAVIL 150 MG PO (20:43)
[2024-02-08 22:34] VITALS: BP 144/80
[2024-02-09 08:29] VITALS: BP 115/78
[2024-02-09] MEDS: PROTONIX 40 MG PO (09:09)
[2024-02-09] MEDS: WELLBUTRIN XL (24 hour extended release) 300 MG PO (09:09)
[2024-02-09] MEDS: LYRICA 150 MG PO (09:09)
[2024-02-09] MEDS: COZAAR 50 MG PO (09:09)
[2024-02-09] MEDS: ASPIR LOW (ENTERIC COATED) 81 MG PO (09:09)
[2024-02-09] MEDS: VITAMIN D3 (cholecalciferol) 25 MCG PO (09:09)
--- NOTE | 2024-02-09 10:03 | W.PN.HOSP.TC ---
Addendum entered and electronically signed by Peyton Smith MD 02/09/24 13:14:
total DC time 35 min
Original Note:
Today's Communication/Plan
-
DC home with HH
Assessment / Plan
Assessment / Plan
A/P:
# Ambulatory dysfunction with possible aphasia prior to presentation, suspect due to vascular dementia:
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
-PT and OT recommended acute rehab, so certified recreational therapist consulted on 02/06, [facility] or home health care therapy
-network contract manager for dispo plan
-of note, Carotid ultrasound no significant stenosis
-cont Aspirin 81 mg daily, Cont Lipitor (LDL 46)
-Vitamin B12 328, TSH 2.01, UA unremarkable, urine tox only positive for tricyclics, and CPK normal 82
-dispo plan HH with outpt PT
#Abdominal pain
Family has brought up the issue of intermittent abdominal discomfort.
Currently her abdominal exam is benign and she does not complain of any abdominal pain.
follow-up with GI as outpatient.
She has not had an EGD in the past and last colonoscopy was more than 20 years ago. Continue PPI.
#Hypokalemia, repleted K
#Breast cancer DCIS
Dx 11/07/2022 with lumpectomy and radiation completed February 2023
Follows with [facility]
#Active smoker
-1 pack a day x 57 years
-Nicotine patch 21 Mg
-Cessation advised
#HTN�benign
-Stable
-Continue losartan
#GERD
Continue omeprazole
#Hx migraines
Takes butalbital/aspirin/caffeine as needed
#Spinal stenosis/peripheral neuropathy
-Continue Lyrica 150 mg p.o. 3 times daily, Flexeril twice daily as needed spasms
#Insomnia
-Continue amitriptyline 150 mg at bedtime
# Renal calculi Hx
DVT prophylaxis: SCDs
Full code
updated on the phone
DW CM
Anticipated Discharge: Today
Subjective/Interval History
-
Date of Service: February 09, 2024
Objective Data
-
Vital Signs:
Vital Signs
Temp Pulse Resp BP Pulse Ox
36.6 C 87 18 115/78 93
02/09/24 08:29 02/09/24 08:29 02/09/24 08:29 02/09/24 08:29 02/09/24 08:29
I&O
02/08/24 02/09/24 02/10/24
06:59 06:59 06:59
Intake Total 480 / 480 1200 / 1200
Output Total 480 / 480
Balance 0 / 0 1200 / 1200
Review of Systems
-
All other systems: Reviewed and negative
Physical Exam
-
General: Well Developed, Well Nourished, No Apparent Distress, Comfortable and Conversant; Negative Respiratory Distress
HEENT: Normocephalic, Atraumatic, Nose Appears Normal and Ears Appear Normal; Negative Oxygen
Respiratory: Clear to Auscultation and Non Labored Respirations; Negative Accessory Resp Muscle Use
Cardiac: Regular Rhythm and S1/S2
GI: Soft, Nontender, Nondistended and Normal Bowel Sounds
Skin: Warm and Dry
Neuro: Awake and Alert
Psych: Calm and Intact Judgement/Insight
Data Reviewed
-
MRI: Report Reviewed by me
Labs: Labs Reviewed by me
--- NOTE | 2024-02-09 11:46 | CM ---
Chart reviewed. Plan for discharge home today with outpatient therapy. CM spoke with patient's , Stan, who is in agreement with plan. No questions or concerns at this time.
--- NOTE | 2024-02-09 13:03 | W.DCSUMMARY ---
Discharge Summary
Discharge Data
Date of Admission: 02/06/24
Date of Discharge: 02/09/24
-
Pending Results: No
Hospital Course
Principal Diagnosis:
Ambulatory dysfunction with possible aphasia prior to presentation, suspect due to vascular dementia
Chronic Diagnoses:�
Breast cancer ductal carcinoma in situ, status post lumpectomy and radiation
Active smoker
Essential hypertension
Gastroesophageal reflux disease
History of migraine
Spinal stenosis/peripheral neuropathy on Lyrica
Consultations:�
Neurology
Procedures:�
None
Clinical course:�
This is a 73-year-old female, with past medical history as stated above, who presented with generalized weakness associated with expressive aphasia which appeared to have resolved during her hospital stay.
Problem 1:
Ambulatory dysfunction with possible aphasia prior to presentation, suspect due to vascular dementia.
Stroke was ruled out with negative MRI brain.
The patient had extensive PT OT eval, and eventually the recommendation was for her to return home with home health.
Of note, her carotid ultrasound showed no significant stenosis.
She can continue with her prior to admission baby aspirin and Lipitor.
As for the rest of her medical problems, they were stable during her hospital stay.
Discharge Plan
-
Patient Disposition: Home (Routine Discharge)
Discharge Diagnosis/Procedures: Ambulatory dysfunction suspect due to progression of vascular dementia
Condition: Good
Diet: As tolerated, Low Fat, Low Cholesterol and Low Sodium
Activity: As tolerated
Driving Restrictions: Not until seen by your Dr
Referrals:
Barney العلي MD [Family Provider] - in less than 1 week
Additional Discharge Medication Instructions: Continue baby aspirin (stop full dose aspirin).
Continue Lipitor 40 mg
Prescriptions:
New
aspirin 81 mg Tablet,Delayed Release (Dr/Ec)
81 mg PO DAILY Qty: 30 0RF
atorvastatin 40 mg Tablet
40 mg PO QPM Qty: 30 0RF
Continued
losartan 50 mg Tablet
50 mg PO DAILY
cyclobenzaprine 10 mg Tablet
10 mg PO BIDPRN PRN (Reason: spasms)
hydrocodone-ibuprofen 7.5-200 mg Tablet
1 tab PO BIDPRN PRN (Reason: migraines)
amitriptyline 150 mg Tablet
150 mg PO HS
Premarin 0.625 mg Tablet
0.625 mg PO DAILY
ytkanedcbw-nehelrq-wwccxrhq 50-325-40 mg capsule
1 cap PO BIDPRN PRN (Reason: migraines)
docusate sodium [Colace] 100 mg Capsule
100 mg PO DAILYPRN PRN (Reason: constipation)
bupropion HCl [Wellbutrin XL] 300 mg Tablet Extended Release 24 Hr
300 mg PO DAILY
pregabalin [Lyrica] 150 mg Capsule
150 mg PO TID
fenofibrate nanocrystallized [Tricor] 145 mg Tablet
145 mg PO DAILY
cholecalciferol (vitamin D3) [Vitamin D3] 25 mcg (1,000 unit) Tablet
25 mcg PO DAILY
Glucosamine Sulf-Chondroitin 500-400 mg Capsule
1 cap PO DAILY
omeprazole 20 mg Tablet,Delayed Release (Dr/Ec)
20 mg PO DAILY
Benadryl Allergy 50 mg Tablet
50 mg PO PRN PRN (Reason: cough)
Discontinued
aspirin 325 mg Tablet
325 mg PO BIDPRN PRN (Reason: backs pain)
Discharge Orders:
Discharge Patient (As Directed); Ordered 02/09/24
Ordered By: Peyton Smith
[2024-02-09 14:00] VITALS: BP 132/80
== END 2024-02-09 14:15 | disposition home or self-care (01) | DRG 56 ==
LOC: 3 WEST ACU 22:58
PROVIDERS: Clinical Nurse Specialist Family Health; Emergency Medicine; Registered Nurse; ADMITTING PHYSICIAN Hospitalist; ATTENDING PHYSICIAN Internal Medicine; CONSULT PHYSICIAN Physical Medicine & Rehabilitation; CONSULT PHYSICIAN Psychiatry & Neurology Neurology; EMERGENCY PHYSICIAN Emergency Medicine; FAMILY PHYSICIAN Family Medicine
DX: I69.320 Aphasia following cerebral infarction (principal); G92.8 Other toxic encephalopathy; I63.9 Cerebral infarction, unspecified; F01.50 Vascular dementia, unspecified severity, without behavioral disturbance, psychotic disturbance, mood disturbance, and anxiety; F17.200 Nicotine dependence, unspecified, uncomplicated; E87.6 Hypokalemia; Z11.52 Encounter for screening for COVID-19; Z79.82 Long term (current) use of aspirin; K21.9 Gastro-esophageal reflux disease without esophagitis; M48.00 Spinal stenosis, site unspecified; I10 Essential (primary) hypertension; Z92.3 Personal history of irradiation; D05.12 Intraductal carcinoma in situ of left breast; G62.9 Polyneuropathy, unspecified
CPT/HCPCS: 70450; 70551; 80048; 80053; 80061; 80306; 81003; 81015; 82550; 82607; 83036; 84443; 85025; 85027; 87070; 87502; 87811; 93005; 93880; 96361; 96374; 97116; 97163; 97167; 97530; 97535; 99285; 99406

== ENCOUNTER 2024-02-13 11:08 | Outpatient (RCR) | payer MEDICARE, BC, SELFPAY | END 2024-02-13 23:59 | disposition home or self-care (01) | LOC: ROT 11:08 | PROVIDERS: ATTENDING PHYSICIAN Family Medicine | DX: I69.828 Other speech and language deficits following other cerebrovascular disease (principal); I69.849 Monoplegia of lower limb following other cerebrovascular disease affecting unspecified side; Z73.6 Limitation of activities due to disability; R26.89 Other abnormalities of gait and mobility; Z85.3 Personal history of malignant neoplasm of breast | CPT/HCPCS: 97167 ==

== ENCOUNTER 2024-03-18 06:44 | Outpatient (RCR) | payer MEDICARE, BC, SELFPAY | END 2024-03-18 23:59 | disposition home or self-care (01) | LOC: RST 06:44 | PROVIDERS: ATTENDING PHYSICIAN Family Medicine | DX: I69.328 Other speech and language deficits following cerebral infarction (principal); I69.318 Other symptoms and signs involving cognitive functions following cerebral infarction; I69.310 Attention and concentration deficit following cerebral infarction; Z73.6 Limitation of activities due to disability; I69.349 Monoplegia of lower limb following cerebral infarction affecting unspecified side; Z85.3 Personal history of malignant neoplasm of breast | CPT/HCPCS: 96125; 97110; 97129; 97130; 97530; 97535 ==

== ENCOUNTER 2024-04-17 06:32 | Outpatient (RCR) | payer MEDICARE, BC, SELFPAY | END 2024-04-17 23:59 | disposition home or self-care (01) | LOC: RPT 06:32 | PROVIDERS: ATTENDING PHYSICIAN Family Medicine | DX: I69.828 Other speech and language deficits following other cerebrovascular disease (principal); I69.328 Other speech and language deficits following cerebral infarction (principal); I69.849 Monoplegia of lower limb following other cerebrovascular disease affecting unspecified side; Z73.6 Limitation of activities due to disability; I69.318 Other symptoms and signs involving cognitive functions following cerebral infarction; R26.89 Other abnormalities of gait and mobility; I69.310 Attention and concentration deficit following cerebral infarction; Z85.3 Personal history of malignant neoplasm of breast; S82.65 Nondisplaced fracture of lateral malleolus of left fibula | CPT/HCPCS: 97110; 97112; 97129; 97130; 97163; 97530; 97535 ==

== ENCOUNTER → 2024-04-23 12:59 | Outpatient (REF) | payer MEDICARE, BC, SELFPAY | LOC: WDC 12:59 | PROVIDERS: ATTENDING PHYSICIAN Surgery; FAMILY PHYSICIAN Family Medicine | DX: R92.2 Inconclusive mammogram (principal) | CPT/HCPCS: 76641 ==

== ENCOUNTER 2024-05-15 13:55 | Outpatient (RCR) | payer MEDICARE, BC, SELFPAY | END 2024-05-15 23:59 | disposition home or self-care (01) | LOC: RPT 13:55 | PROVIDERS: ATTENDING PHYSICIAN Family Medicine | DX: I69.328 Other speech and language deficits following cerebral infarction (principal); I69.828 Other speech and language deficits following other cerebrovascular disease (principal); I63.9 Cerebral infarction, unspecified (principal); I69.849 Monoplegia of lower limb following other cerebrovascular disease affecting unspecified side; I69.318 Other symptoms and signs involving cognitive functions following cerebral infarction; S82.65 Nondisplaced fracture of lateral malleolus of left fibula; I69.310 Attention and concentration deficit following cerebral infarction; Z73.6 Limitation of activities due to disability; R26.89 Other abnormalities of gait and mobility; Z85.3 Personal history of malignant neoplasm of breast | CPT/HCPCS: 97110; 97112; 97116; 97129; 97130; 97530; 97535 ==

== ENCOUNTER 2024-06-17 11:28 | Outpatient (RCR) | payer MEDICARE, BC, SELFPAY | END 2024-06-17 23:59 | disposition home or self-care (01) | LOC: RPT 11:28 | PROVIDERS: ATTENDING PHYSICIAN Family Medicine | DX: I63.9 Cerebral infarction, unspecified (principal); I69.328 Other speech and language deficits following cerebral infarction (principal); I69.318 Other symptoms and signs involving cognitive functions following cerebral infarction; S82.65 Nondisplaced fracture of lateral malleolus of left fibula; I69.310 Attention and concentration deficit following cerebral infarction; Z73.6 Limitation of activities due to disability; I69.828 Other speech and language deficits following other cerebrovascular disease; I69.849 Monoplegia of lower limb following other cerebrovascular disease affecting unspecified side; R26.89 Other abnormalities of gait and mobility; Z85.3 Personal history of malignant neoplasm of breast | CPT/HCPCS: 97110; 97112; 97129; 97130; 97530; 97535 ==

== ENCOUNTER 2024-06-26 13:01 | Outpatient (RCR) | payer MEDICARE, BC, SELFPAY | END 2024-06-26 16:09 | disposition home or self-care (01) | LOC: RPT 13:01 | PROVIDERS: ATTENDING PHYSICIAN Family Medicine | DX: I69.328 Other speech and language deficits following cerebral infarction (principal); I69.318 Other symptoms and signs involving cognitive functions following cerebral infarction; I69.310 Attention and concentration deficit following cerebral infarction; S82.65 Nondisplaced fracture of lateral malleolus of left fibula; I69.398 Other sequelae of cerebral infarction; Z73.6 Limitation of activities due to disability | CPT/HCPCS: 97110; 97112; 97116; 97129; 97130; 97530; 97535 ==

== ENCOUNTER → 2024-10-29 11:45 | Outpatient (REF) | payer MEDICARE, BC, SELFPAY | LOC: WDC 11:45 | PROVIDERS: ATTENDING PHYSICIAN Family Medicine | DX: Z12.31 Encounter for screening mammogram for malignant neoplasm of breast (principal) | CPT/HCPCS: 77063; 77067 ==

== ENCOUNTER → 2025-08-21 09:04 | Outpatient (REF) | payer MEDICARE, BC, SELFPAY | LOC: WDC 09:04 | PROVIDERS: ATTENDING PHYSICIAN Surgery; FAMILY PHYSICIAN Family Medicine | DX: N63.20 Unspecified lump in the left breast, unspecified quadrant (principal) | CPT/HCPCS: 76642; 77062; 77066 ==